=== PATIENT | male | born 1940 | race Caucasian/White ===

== ENCOUNTER → 2019-03-29 09:11 | Outpatient (BNVA) | payer MEDICARE, BC, OTHER, SELFPAY | PROVIDERS: PCP Family Medicine; Referring Provider Family Medicine; Visit Provider Psychiatry & Neurology Neurology | DX: I63.9 Cerebral infarction, unspecified (principal); I48.0 Paroxysmal atrial fibrillation; F32.9 Major depressive disorder, single episode, unspecified; G47.00 Insomnia, unspecified; Z79.01 Long term (current) use of anticoagulants; I10 Essential (primary) hypertension | CPT/HCPCS: 99205 ==

== ENCOUNTER 2019-04-05 06:59 | Outpatient (CLI) | payer MEDICARE, BC, OTHER, SELFPAY ==
--- NOTE | 2019-04-05 08:30 | MERGEMPI_ITS ---
*[facility]* *[facility]* [address] [place] [address] Myocardial Perfusion Imaging - SPECT Regadenoson Date of study: 04/05/2019 *PATIENT PRESENTATION* Height: 157.5cm (62in) Blood Pressure: Weight: 63.6kg (140lb) BSA: 1.68m^2 Referring physician: Jaun Vaca Ordering physician: Luca Pino Impressions: Normal myocardial perfusion and contraction after pharmacological stress. Summary: 1. Myocardial perfusion imaging: The right ventricle is dilated. No myocardial perfusion defects noted. 2. The calculated left ventricular ejection fraction after stress: 66%. LV global systolic function is normal. No left ventricular regional motion abnormality. 3. Stress ECG conclusions: The stress ECG is negative. 4. Baseline ECG: Sinus bradycardia with 1degrees AV block and right bundle branch block. Indication: I25.10. History: REASON FOR VISIT: PAROXSYMAL ATRIAL FIBRILLATION. PT'S DAUGHTER REPORTS SHE BELIEVES THE REASON FOR TESTING IS BECAUSE HIS DOCTOR WANTS HIM TO COME OFF OF HIS FLECAINIDE MEDICATION. 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 PT DENIES ANY ISSUES WITH CHEST PAIN. Risk factors: FORMER SMOKER. QUIT 30 YEARS PRIOR. Hypertension. Dyslipidemia. ALLERGIES: CODEINE MEDICATIONS: SENNOSIDES 17.2 MG DAILY. ROSUVASTATIN 20 MG DAILY. POLYETHYLENE GLYCOL 17 GM DAILY. OMEPRAZOLE 40 MG DAILY. MULTIVITAMIN 1 TAB DAILY. MIRTAZAPINE 7.5 MG DAILY AT HS. METOPROLOL TARTRATE 25 MG BID. FLUTICASONE FUROATE 100 MCG/DOSE I INH DAILY. FLECAINIDE 100 MG Q 12 HRS. CHOLECALCIFEROL 2,000 UNITS DAILY. ASCORBIC ACID 500 MG DAILY. APIXABAN 5 MG BID. AMLODIPINE 5 MG BID. ACETAMINOPHEN 650 MG Q 4HRS PRN. Imaging Technique: Protocol: Regadenoson. Acquisition: Gated SPECT; 1 day - rest/stress. The patient was imaged in the supine position. Attenuation correction used. Isotope administration: - Rest. Tc[99m]-sestamibi. Dose: 10.5mCi. Injection time: 08:20 AM. Injection to stress time: 00:45. - Stress. Tc[99m]-sestamibi. Dose: 32mCi. Injection time: 10:10 AM. 1-2 min before end of exercise Baseline ECST DEGREE AVB. RBBB. HR 57 BPM. Sinus bradycardia with 1degrees AV block and right bundle branch block. Stress protocol: +--------+--+ + + !Stage !HR!BP (mmHg) !Comments ! +--------+--+ + + !Baseline!57!140/60 (87)! ! +--------+--+ + + !1 min !73!150/50 (83)!Inject Regadenoson.! +--------+--+ + + !3 min !74!146/64 (91)! ! +--------+--+ + + !5 min !72!136/60 (85)! ! +--------+--+ + + !7 min !71!130/60 (83)! ! +--------+--+ + + * Stress results: The rate-pressure product for the peak heart rate and blood pressure was 44982rl Hg/min. Stress ECG: STRESS TEST ENDED IN 7 MINUTES & 49 SECONDS NORMAL HEART RATE AND BLOOD PRESSURE RESPONSE TO LEXISCAN INJECTION OCCASIONAL PVC. NO ANGINA RBBB. NO SIGNIFICANT ST SEGMENT CHANGES. The stress ECG is negative. Myocardial perfusion: Imaging information: gated. The image quality was good. Left ventricular size is normal. The right ventricle is dilated. No myocardial perfusion defects noted. Ventricular Function (Wall Motion): The calculated left ventricular ejection fraction after stress: 66%. LV global systolic function is normal. No left ventricular regional motion abnormality. Study data: Jaun Vaca MD supervised and was readily available during the procedure. This study was interpreted by [facility]. Study status: Routine. Consent: The risks, benefits, and alternatives to the procedure were explained to the patient and informed consent was obtained. Procedure: Initial setup. A baseline ECG was recorded. Surface ECG leads and manual cuff blood pressure measurements were monitored. Heart sounds: Normal. Lung sounds: Normal. Regadenoson stress test. Stress testing was performed, with regadenoson by intravenous bolus, for a total dose of 0.4mgover 10.00sec, followed by a 5ml saline flush. The infusion was terminated due to per protocol. The patient was unable to exercise due to deconditioning and or frailty. Study completion: All catheters inserted during the procedure were removed. The patient tolerated the procedure well and was discharged from the lab. Discharge: The patient left the laboratory in stable condition. Birthdate: Patient birthdate: 1940. Sex: Gender: male. Study date: Study date: 04/05/2019. Study time: 00:01 AM. Signature Documentation: - The imaging portion of this study was interpreted by Nuclear Alternative Dispute Resolution Mediator Jaun Vaca MD. - The imaging portion of this study was interpreted by Nuclear Radiologist Ash Hutton MD. - The Stress ECG portion of this study was interpreted by Jaun Vaca MD. Electronically signed by Jaun Vaca 04/05/2019 14:57
[2019-04-05] MEDS: Regadenoson 0.4 MG/5 ML SYR IVP (09:54)
== END 2019-04-05 07:19 ==
PROVIDERS: PCP Family Medicine; Visit Provider Internal Medicine Cardiovascular Disease
DX: I48.0 Paroxysmal atrial fibrillation (principal); I25.10 Atherosclerotic heart disease of native coronary artery without angina pectoris; I10 Essential (primary) hypertension; E78.5 Hyperlipidemia, unspecified; I63.9 Cerebral infarction, unspecified; Z87.891 Personal history of nicotine dependence
CPT/HCPCS: 78452; 93016; 93018; 93017; J2785

== ENCOUNTER 2019-06-21 09:52 | Outpatient (CLI) | payer MEDICARE, BC, OTHER, SELFPAY ==
--- NOTE | 2019-06-21 09:45 | DI.RAD_ITS ---
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 There is severe deformity of the tibial plateaus and femoral condyles with a bone on bone appearance. 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
== END 2019-06-21 10:12 ==
PROVIDERS: PCP Family Medicine; Referring Provider Family Medicine; Visit Provider Student in an Organized Health Care Education/Training Program
DX: M25.561 Pain in right knee (principal); M17.31 Unilateral post-traumatic osteoarthritis, right knee
CPT/HCPCS: 20610; 73562; 99203; J1040

== ENCOUNTER 2019-07-03 15:22 | Outpatient (CLI) | payer MEDICARE, BC, OTHER, SELFPAY ==
--- NOTE | 2019-07-03 15:30 | DI.RAD_ITS ---
SYMPTOM/DIAGNOSIS: FEVER I 10, HYPERTENSION R50.9 FEVER PA AND LATERAL CHEST: No prior comparison exams. The heart size is within normal limits. The lungs are suboptimally inflated. There is minimal blunting of the posterior costophrenic angles. There are mildly increased interstitial markings which could indicate mild pulmonary edema. There is some vascular prominence. No focal infiltrate is seen. There is no evidence of pneumothorax or thoracic compression fracture. IMPRESSION: Question of mild pulmonary edema.
[2019-07-03 15:52] LABS: HCT 33.4 % (40.0-50.0); HGB 10.6 g/dL (13.5-17.5); Mean Corp. HGB Concentration 31.7 g/dL (32.0-36.0); Mean Corpuscular Hemoglobin 27.6 pg (27.0-33.0); Mean Platelet Volume 10.1 fL (8.0-11.0); Platelet Count 193 x1000/uL (130-400); RBC 3.84 m/cumm (4.50-6.00); RBC Distribution Width 13.8 % (11.8-14.1); White Blood Cell Count 7.97 k/cumm (4.4-10.8)
[2019-07-03 16:50] LABS: ESR 51 mm/hr (1-20)
[2019-07-03 16:52] LABS: ALT 75 U/L (16-63); AST 32 U/L (15-37); Albumin 3.3 g/dL (3.4-5.0); Alkaline Phosphatase 126 U/L (46-116); Anion Gap 10.7 mmol/L (3-11); BUN 19 mg/dL (7-18); Bilirubin, Total 0.7 mg/dL (0.2-1.0); CO2 26.3 mmol/L (21.0-32.0); CREATININE 0.74 mg/dL (0.70-1.30); Calcium 8.6 mg/dL (8.5-10.1); Chloride 105 mmol/L (98-107); Glucose 84 mg/dL (70-100); Potassium 4.3 mmol/L (3.5-5.1); Sodium 142 mmol/L (136-145)
== END 2019-07-03 15:42 ==
PROVIDERS: PCP Family Medicine; Visit Provider Nurse Practitioner
DX: R50.9 Fever, unspecified (principal); J98.4 Other disorders of lung; I10 Essential (primary) hypertension
CPT/HCPCS: 36415; 80053; 85027; 85652; 71046

== ENCOUNTER 2019-07-03 15:48 | Outpatient (REF) | payer MEDICARE, OTHER, SELFPAY | END 2019-07-03 16:08 | LOC: LBN 15:48 | PROVIDERS: PCP Family Medicine; Visit Provider Nurse Practitioner | DX: R50.9 Fever, unspecified (principal) | CPT/HCPCS: 87086 ==

== ENCOUNTER → 2019-08-07 10:03 | Outpatient (BNVA) | payer MEDICARE, BC, OTHER, SELFPAY | PROVIDERS: PCP Family Medicine; Referring Provider Family Medicine; Visit Provider Student in an Organized Health Care Education/Training Program | DX: M17.31 Unilateral post-traumatic osteoarthritis, right knee; M25.561 Pain in right knee; Z98.890 Other specified postprocedural states; I10 Essential (primary) hypertension | CPT/HCPCS: 99212; 99213 ==

== ENCOUNTER → 2021-06-12 11:00 | Outpatient (BNVA) | payer MEDICARE, OTHER, SELFPAY | PROVIDERS: PCP Family Medicine; Referring Provider Family Medicine; Visit Provider Internal Medicine Cardiovascular Disease | DX: I48.0 Paroxysmal atrial fibrillation (principal); I34.0 Nonrheumatic mitral (valve) insufficiency; Z79.899 Other long term (current) drug therapy | CPT/HCPCS: 93005; 99204; 99214 ==

== ENCOUNTER 2021-12-03 01:08 | Outpatient (CLI) | payer MEDICARE, OTHER, SELFPAY ==
[2021-12-03 10:50] VITALS: PULSE 79; RESP 18; TEMP 36.9; O2SAT 97
[2021-12-03 12:18] VITALS: BP 121/59; PULSE 85; RESP 20; TEMP 36.8; O2SAT 96
== END 2021-12-03 01:09 | disposition home or self-care (01) ==
PROVIDERS: PCP Family Medicine; Visit Provider Family Medicine
DX: U07.1 COVID-19 (principal)
CPT/HCPCS: 96365; Q0047

== ENCOUNTER 2022-05-01 02:03 | Observation (INO) | payer MEDICARE, BC, OTHER, SELFPAY ==
[2022-05-01] VITALS (96 sets, daily range): BP systolic 95–160; BP diastolic 56–92; PULSE 57–79; RESP 16–19; TEMP 35.6–37; O2SAT 93–100
--- NOTE | 2022-05-01 02:00 | RT.EKG_ITS ---
APPROVED REPORT Exam: Resting ECG Reason for Exam: shortness of breath Patient Location: E HR:73 bpm ECG Measurements Heart Rate 73 AXIS [place] [id number] P [id number] QRSd 172 QRS 103 QT 484 T 6 QTc 535 Conclusion Atrial fibrillation...? atrial activity Right bundle branch block...QRSd>120, terminal axis(90,270) Consider anteroseptal infarct...Q >30mS, dimin R, V1-V2
--- OUTSIDE RECORDS SUMMARY | 2022-05-01 02:10 | XMS_ITS | Clinical Summary ---
:1940 Author Organization [facility] [place] [address] Care Team Providers Name Role Phone Douglas Presley Ale FORD Primary Care Provider Allergies Active Allergy Reactions Severity Noted Date Comments Codeine Other (See Comments) 03/20/2019 Stomach swelling Medications Medication Sig Dispensed Refills Start Date End Date Status amLODIPine (NORVASC) 5 TAKE 1 TABLET BY 0 03/16/2019 Active mg Tablet MOUTH TWICE DAILY zolpidem (AMBIEN) 5 mg take 1 tablet by 0 02/22/2019 Active Tablet mouth at bedtime if needed for sleep ELIQUIS 5 mg Tablet Take 5 mg by 0 03/06/2019 Active mouth 2 times daily. flecainide (TAMBOCOR) take 1 tablet by 0 02/23/2019 Active 100 mg Tablet mouth every 12 hours omeprazole (PRILOSEC) Take 20 mg by 0 Active 20 mg Capsule, Delayed mouth daily. Release(E.C.) multivit with Take 1 tablet by 0 Active minerals/lutein mouth daily. (MULTI-JASPAL 50 AND OVER ORAL) ascorbic acid (VITAMIN Take 500 mg by 0 Active C) 500 mg Tablet mouth daily. senna (SENOKOT) 8.6 mg Take 1 tablet by 0 Active Tablet mouth nightly. METOPROLOL TARTRATE Take 25 Devices 0 Active ORAL by mouth daily. cholecalciferol, Take 1,000 Units 0 Active Vitamin D3, 1,000 unit by mouth daily. Capsule fluticasone Inhale 1 puff 0 Acti ve furoate-vilanterol into the lungs (BREO ELLIPTA) 100-25 daily. mcg/dose Disk with Device polyethylene glycol Take 17 g by 0 Active (MIRALAX) 17 gram mouth daily. Powder in Packet rosuvastatin (CRESTOR) Take 1 tablet by 90 tablet 3 03/20/2019 Active 20 mg Tablet mouth daily. Active Problems No known active problems Social History Tobacco Use Types Packs/Day Years Used Date Former Smoker Cigarettes Quit: 03/20/20 16 Smokeless Tobacco: Never Used Sex Assigned at Date Recorded Not on file Last Filed Vital Signs Vital Sign Reading Time Taken Comments Blood Pressure 129/49 03/20/2019 8:28 AM EDT Pulse 56 03/20/2019 8:28 AM EDT Temperature - - Respiratory Rate - - Oxygen Saturation 99% 03/20/2019 8:28 AM EDT Inhaled Oxygen Concentration - - Weight 64 kg (141 lb) 03/20/2019 8:28 AM EDT Height 154.9 cm (5' 0.98) 03/20/2019 8:28 AM EDT Body Mass Index 26.66 03/20/2019 8:28 AM EDT Plan of Treatment Health Maintenance Due Date Last Done Comments Covid-19 Vaccine (#1) 1945 Tdap adult 1959 Tetanus vaccine 1959 Zoster vaccine (1 of 2) 1990 Advance Directive 1995 Pneumoccocal Vaccine: 65+ (1 - PCV) 2005 Influenza (Flu) vaccine (1 of 1 - Influenza standard 07/09/2021 series) Insurance Payer Benefit Plan / Subscriber ID Effective Dates Phone Addre ss Type Group [facility] [employer] [id number] 2018-Presen [address] [place], [place] [address] MEDICARE MEDICARE PART [id number] 2019-Prese [phone] [place] [address] Care Teams Driver Material Handler Relationship Specialty Start Date End Date Douglas Presley DO PCP - General Family Medicine 02/22/[address] [place] [address]
--- OUTSIDE RECORDS SUMMARY | 2022-05-01 02:10 | XMS_ITS | Encounter Summary ---
:1940 Author Organization [facility] [place] [address] Care Team Providers Name Role Phone Douglas Presley DO Primary Care Provider Reason for Visit Consultation (Routine) - Closed Specialty Diagnoses / Procedures Referred By Contact Refer red To Contact Cardiology Diagnoses chronic A fib, new stroke was not on anticoagulation Douglas Presley DO [facility] Card[facility] [address]a [address] [place] [place] [id number] [place] [id number] Referral ID Status Reason Start Date Expiration Date Visits V isits Requested Authorized [id number] Closed Consult, 02/22/2019 02/22/2020 1 1 [facility] Encounter Details Date Type Department Care Team Description 03/20/2019 Office Visit Cardiology at [facility] Luca Merchant MD [facility] [place] [address] PAF (paroxysmal atrial [facility] Jr White MD [facility] [place] [address] fibrillation) [place] [address] Social History Tobacco Use Types Packs/Day Years Used Date Former Smoker Cigarettes Quit: 03/20/20 16 Smokeless Tobacco: Never Used Sex Assigned at Date Recorded Not on file documented as of this encounter Last Filed Vital Signs Vital Sign Reading [...] Mass Index 26.66 03/20/2019 8:28 AM EDT documented in this encounter Progress Notes Jr White - 03/20/2019 8:00 AM EDT Images from the original note were not included. CARDIOVASCULAR MEDICINE [address] [place] [address] Subjective Identification Red Cat is a 78 y.o. patient of Douglas Presley DO Cardiovascular Problem List: HTN PAF ([id number]): 5 2010: Initially dx'ed, refused OAC, started on flecainide 01/2019: presented with CVA Opted to take apixaban following this CVA: 10/2018: First CVA, started on eliquis at this time 01/2019: - p/w cp and gait changes. MRI brain showed acute L frontal-parietal lobe infarct and L occipital lobe infarct -discharged to rehab 3 weeks later -persistent deficits as of 03/20/19: aphasia and r sided weakness Present Illness 78 y/o man with hx of htn, hld, PAF and CVA who presents for cardiology follow up. History is limited by aphasia, however his family tells me that he was first diagnosed with atrial fibrillation back in [place] roughly in 2010 in the setting of increasing dyspnea and palpitations. At this time he underwent a cardiac catheterization which was reportedly normal and started on flecainide for rhythm control. At this time, he refused anticoagulation. He had no further cardiac issues up until October 2018, at which time he developed his first CVA. He was admitted to [facility] [place] (presumably a thrombectomy). The rest of his stroke work-up from that time is not available to me. At this time he was started on Eliquis for anticoagulation. He then underwent rehabilitation, however was readmitted to [facility] after developing right leg weakness, dysphasia and dyspnea. MRI of his brain showed multiple subsequent infarcts and he was managed for repeat stroke. He was admitted for 3 weeks (including his rehab stay) and subsequently he and his have moved up to [place] to live with her daughter near [facility]. Following these episodes, he is doing fairly well all things considered. His main complaints still include mild dysphasia, aphasia, and right-sided weakness and gait instability. He denies any dyspnea with exertion (although he is only doing light exercises with PT and OT) syncope, palpitations, angina, PND, orthopnea. He does note mild bilateral lower extremity edema with right worse than left thereis been present since his stroke. He and his note that in the past, when he did have episodes of atrial fibrillation, these wouldbe associated with dyspnea and sense of fatigue rather than palpitations. They are not sure that these episodes always correlated with A. fib and they are not sure why he was started on flecainide backin 2010, however they note that he has tolerated this drug quite well and he denies any significant recent episodes of palpitations. His other major complaints include constipation and insomnia. Review of Systems As per HPI, otherwise negative Past Medical History PAF HTN HLD Social History Social History Social History Narrative Minimal alcohol, former smoker, no drug use. Lives with and daughter in [place], [place]. Speaks Greenlandic and has difficulty with Irish since his last stroke. Family History No family history of early CAD Medications Current Outpatient Medications: ??? amLODIPine (NORVASC) 5 mg Tablet, TAKE 1 TABLET BY MOUTH TWICE DAILY, Disp: , Rfl: 0 ??? zolpidem (AMBIEN) 5 mg Tablet, take 1 tablet by mouth at bedtime if needed for sleep, Disp: , Rfl: 0 ??? ELIQUIS 5 mg Tablet, Take 5 mg by mouth 2 times daily., Disp: , Rfl: 0 ??? flecainide (TAMBOCOR) 100 mg Tablet, take 1 tablet by mouth every 12 hours, Disp: , Rfl: 0 ??? omeprazole (PRILOSEC) 20 mg Capsule, Delayed Release(E.C.), Take 20 mg by mouth daily., Disp: , Rfl: ??? multivit with minerals/lutein (MULTI-JASPAL 50 AND OVER ORAL), Take 1 tablet by mouth daily., Disp: , Rfl: ??? ascorbic acid (VITAMIN C) 500 mg Tablet, Take 500 mg by mouth daily., Disp: , Rfl: ??? senna (SENOKOT) 8.6 mg Tablet, Take 1 tablet by mouth nightly., Disp: , Rfl: ??? METOPROLOL TARTRATE ORAL, Take 25 Devices by mouth daily., Disp: , Rfl: ??? cholecalciferol, Vitamin D3, 1,000 unit Capsule, Take 1,000 Units by mouth daily., Disp: , Rfl: ??? fluticasone furoate-vilanterol (BREO ELLIPTA) 100-25 mcg/dose Disk with Device, Inhale 1 puff into the lungs daily., Disp: , Rfl: ??? polyethylene glycol (MIRALAX) 17 gram Powder in Packet, Take 17 g by mouth daily., Disp: , Rfl: ??? rosuvastatin (CRESTOR) 20 mg Tablet, Take 1 tablet by mouth daily., Disp: 90 tablet, Rfl: 3 Allergies Allergies Allergen Reactions ??? Codeine Other (See Comments) Stomach swelling Objective Physical Exam BP 129/49 Pulse 56 Ht 154.9 cm (5' 0.98) Wt 64 kg (141 lb) SpO2 99% BMI 26.66 kg/m?? , Body mass index is 26.66 kg/m??. General: fatigued, falls asleep during visit, no acute distress ENT: clear oropharynx, moist mucous membranes Neck: midline trachea, supple neck, jugular vein 7 cm (visible and not distended), Cardiac: S1S2 regularly regular, no murmurs/rubs/gallops, no RV heave, PMI nondisplaced Lungs: Clear to auscultation bilaterally, no wheezes/rales/rhonchi Abdomen: soft, NT/ND, Ext: no clubbing or cyanosis, 1+ b/l edema Vascular: No carotid bruits.Radial pulses 2+, Neurologic: deferred Skin: no rashes Back: no kyphosis or scoliosis Labs No new labs at this time Studies Echo 01/2019: nml biventricular systolic function, no valvular disease EKG 01/2019: NSR with RBBB and FAVB EKG today: NSR with FAVB and RBBB, QT interval was 488 ms corrected down to 418 when accounting for the right bundle branch block and heart rate. Assessment 78-year-old man with paroxysmal atrial fibrillation complicated by multiple cerebrovascular accidents who presents today for initial cardiology follow-up after his recent strokes. 1. Paroxysmal atrial fibrillation He is currently in normal sinus rhythm and tolerating flecainide well at this time. We discussed therisks of flecainide, however we noted that he has no known coronary disease and appears to have minimal evidence of QT prolongation while on this medication. His prior echo from [place] shows a structurally normal heart with no evidence of systolic dysfunction. We discussed that while its unusual to remain on this medication at his age, there is no significant contraindications to it. It appears that he did become symptomatic while in atrial fibrillation, and flecainide certainly would reduce his burden. We noted that there is no reduction in stroke risk from flecainide. We discussed several options, the first being to continue flecainide with an ischemia evaluation (pharmacologic nuclear stress testing) versus discontinuing the drug and evaluating whether or not he develops symptoms from going into atrial fibrillation. As he is tolerating the medication well, his family and I agreed that it would be reasonable just to continue this medication and stress testing at this time. He will be following up with neurology at [facility] to discuss his recent strokes and to determine whether or not any further work-up is necessary. Although he had his st most recent stroke while taking Eliquis, we agree that it is still reasonable to continue on this medication at this time. Plan ?? Pharmacologic nuclear stress test Jr White MD 03/20/2019 10:08 AM cc: ?? Douglas Presley, DO [address] [facility] [address] [place] Luca Merchant MD - 03/20/2019 8:00 AM EDT Attending Note I have independently interviewed and and examined the patient following the fellow's evaluation. Theassessment and plan were formulated in discussion with me. Tolerating flecainide well. QTc is fine. I think it is a reasonable choice as long as we do periodic stress testing every 2 years. Luca Merchant MD, MS, FACC documented in this encounter Miscellaneous Notes Addendum Note - Luca Merchant MD - 03/20/2019 8:00 AM EDT Addended by: LUCA MERCHANT on: 03/20/2019 11:12 AM Modules accepted: Level of Service documented in this encounter Plan of Treatment Not on filedocumented as of this encounter Procedures Procedure Name Priority Date/Time Associated Diagnosis Comme nts EKG 12-LEAD Routine 03/20/2019 9:01 AM PAF (paroxysmal Result s for this EDT atrial fibrillation) procedu re are in the results section . documented in this encounter Results EKG 12 Lead (03/20/2019 9:01 AM EDT) Component Value Ref Range Test Analysis Performed Pathologis t Method Time At Signature Ventricular rate 56 BPM MUSE SYSTEM Atrial Rate 56 BPM MUSE SYSTEM P-R Interval 272 ms MUSE SYSTEM QRS Duration 156 ms MUSE SYSTEM Q-T Interval 488 ms MUSE SYSTEM QTC Calculated 470 ms MUSE SYSTEM (Bezet) Calculated P [place] 73 degrees MUSE SYSTEM Calculated R [place] 87 degrees MUSE SYSTEM Calculated T [place] 4 degrees MUSE SYSTEM INTERPRETATION Sinus bradycardia with 1st degree A-V block MUSE SYSTEM Right bundle branch block Abnormal ECG No previous ECGs available Confirmed by MD PAKO, JOSE ([id number]) on 03/20/2019 7:46:45 PM Specimen Anatomical Collection Method Collection Time Receive d Time (Source) Location / / Volume Laterality 03/20/2019 9:01 AM 05/13/201 9 7:46 EDT PM EDT Luca Merchant MD ECG ORDERABLES Performing Organization Address City/State/ZIP Code Phon e Number MUSE SYSTEM documented in this encounter Visit Diagnoses Diagnosis PAF (paroxysmal atrial fibrillation) Atrial fibrillation documented in this encounter Care Teams Marine Cargo Specialist Relationship Specialty Start Date End Date Douglas Presley DO PCP - General Family Medicine 02/22/[address] [place] [address] documented as of this encounter
--- NOTE | 2022-05-01 02:15 | DI.CT_ITS ---
Exam(s) CT THORAX ABD/PEL CTA EXAM: CT THORAX ABD/PEL CTA CLINICAL HISTORY: chest and abodmen pain, ?dissection. TECHNIQUE: Imaging Protocol: Axial CT angiography was performed with multi-slice acquisition and m ulti-planar and/or 3D reconstructions. CONTRAST MATERIAL: Intravenous: Omnipaque 350ml contrast volume:100 mL Oral: No COMPARISON: No exams were available for comparison FINDINGS: The examination is limited due to patient motion artifact. CHEST: Tracheobronchial tree: Patent where visualized. Pulmonary parenchyma: No consolidation or dominant measurable mass. No architectural distortion. Depe ndent atelectasis. Pulmonary Arteries: No evidence of filling defect to suggest pulmonary emboli. Mediastinum and Kely: No dominant adenopathy or fluid collection. Visualized thyroid: Unremarkable. Pleura: No effusion or pneumothorax. Heart: Mild cardiomegaly. Coronary artery calcifications are present. No pericardial effusion. Aorta: Thoracic aorta non-dilated. No evidence of dissection. Atherosclerosis is present. Soft Tissues: Unremarkable. Bones: Within normal limits for the patient's age. ABDOMEN AND PELVIS: Abdomen: Celiac axis/mesenteric arteries: No evidence of occlusion or significant stenosis. Atherosclerosis i s present. Renal Arteries: No evidence of occlusion or significant stenosis. There is a single renal artery per fusing each kidney. Atherosclerosis is present. Aorta: No evidence of occlusion or significant stenosis. No aneurysm or dissection. Atherosclerosi s is present. Pelvis: Iliac Arteries: No evidence of occlusion or significant stenosis. Atherosclerosis is present. Common Femoral Arteries: No evidence of occlusion or significant stenosis. Atherosclerosis is prese nt. ABDOMEN: Liver: Normal density. No measurable mass. Gallbladder and Biliary Tract: No radiodense calculus or dilation. Pancreas: Normal density, no abnormal calcifications or inflammatory process. Spleen: Normal. Adrenals: No masses seen. Kidneys: Normal size, contour and axis. No radiodense stones or obstructive uropathy. Bilateral renal cysts. Bowel: No obstruction or bowel wall thickening. No evidence of appendicitis. Peritoneal Cavity: No ascites, collection or mesenteric inflammatory response. No free air. Lymph Nodes: Within normal limits. Bones: Within normal limits for the patient's age. Soft Tissues: There are bilateral fat containing inguinal hernia. PELVIS: Bladder: Incompletely distended but grossly unremarkable. Reproductive Organs: Mildly enlarged. Lymph Nodes: Within normal limits. Bones: Within normal limits. IMPRESSION: No acute abnormality. RADIATION DOSE DELIVERED: 997.53mGy.cm Total DLP DATA REPOSITORY: All CT scans at this facility are submitted to the National Radiology Data Registry (NRDR) Dose Index Registry (DIR) with the [employer] (ACR). RADIATION OPTIMIZATION: All CT scans at this facility use at least one of these dose optimization te chniques: automated exposure control; mA and/or kV adjustment per patient size (includes targeted exa ms where dose is matched to clinical indication); or iterative reconstruction.
--- NOTE | 2022-05-01 02:22 | ED.GENADUL_ITS ---
Discharge Plan Disposition Patient Disposition: [facility] INPATIENT Condition: Stable Discharge Details Chief Complaint: GenMedical Clinical Impression: Chest pain, Abdominal pain Primary Care Provider: Douglas Presley ED Provider: Maxi Asencio Home Meds and New Rx's Prescriptions: No Action (DME) Shower Chair Qty: 1 0RF Rx Instructions: Red would benefit from a shower chair to assist in hygiene given his progress with stroke. Senokot Extra Strength 17.2 mg tablet 17.2 mg PO DAILY acetaminophen 325 mg tablet 650 mg PO Q4H PRN metoprolol tartrate 25 mg tablet 25 mg PO BID Qty: 180 3RF apixaban 5 mg tablet 5 mg PO BID Qty: 180 3RF rosuvastatin 10 mg tablet 10 mg PO DAILY Qty: 90 3RF Rx Instructions: Covering for TM -- new dose per MD provider flecainide 100 mg tablet 100 mg PO Q12H Qty: 180 3RF amlodipine 5 mg tablet 5 mg PO BID Qty: 180 3RF Medical Decision Making 81 yo male with hx of gerd, afib, htn, hld, who comes in with chest pain and dyspnea. He is accompanied by his daughter and he had been well during the day then woke up her up after going to sleep stating his chest hurt and he had trouble breathing. He denies any fevers, cough. He states his upper back and also his abdomen hurts. He is in no distress laying in the bed, stable vital signs. He has clear lungs, soft abdomen but is tender in all quadrants, no guading. Given the chest pain radiating to his back and abdomen concern for dis section, will obtain cta of the chest/abd/pelvis and also cbc, troponin, ecg, lipase and reassess. Will hold on aspirin until dissection ruled out with cta. ' labs and cta negative, he was given a dose of lasix given his probnp was over 1000. He is stable states he has some anterior mild chest tightness. Given his age and risk factors will admit for further observation and possibly a stress test Differential Diagnosis Differential Diagnosis: dissection, nstemi, pancreatitis Medical Records Medical records reviewed: Yes I reviewed the patient's medical records. Imaging Data Radiologic Study: Attestation: I personally reviewed and interpreted this imaging study as follows: Imaging: CT Scan Radiologist's impression: no acute findings Lab Data Lab results reviewed: Yes I reviewed the patient's lab results. ECG Data Attestation: I personally reviewed and interpreted this ECG (s) as follows: Prior ECG tracings: available for review Interpretation: afib, rate of 73, rbbb, no acute changes from prior ekg HPI General Date/Time Provider Initiated Documentation: 05/01/22 02:09 . Limitations to Documentation: no limitations . Information obtained by: patient and family . History of Present Illness 81 year old M presents to the emergency department with the chief complaint of chest pain, described as moderate, and is localized to the chest. Patient reports radiation to back and abdomen. Patient started experiencing this hour(s) (1) and it has been constant. No relieving factors improve symptom(s), No exacerbating factors reported . Patient notes shortness of breath. Patient did receive the following treatments prior to arrival, none Related Data Home Medications Medication Instructions Recorded Confirmed acetaminophen 325 mg tablet 650 mg PO Q4H PRN 02/16/19 05/01/22 Shower Chair #1 ea 06/21/19 06/12/21 sennosides 17.2 mg tablet (Senokot 17.2 mg PO DAILY 05/22/21 05/01/22 Extra Strength) metoprolol tartrate 25 mg tablet 25 mg PO BID #180 tab-caps 06/23/21 05/01/22 apixaban 5 mg tablet 5 mg PO BID #180 tabs 09/09/21 05/01/22 rosuvastatin 10 mg tablet 10 mg PO DAILY #90 tab-caps 09/09/21 05/01/22 amlodipine 5 mg tablet 5 mg PO BID #180 tabs 03/03/22 05/01/22 flecainide 100 mg tablet 100 mg PO Q12H #180 tabs 03/03/22 05/01/22 Previous Rx's Medication Instructions Recorded Shower Chair #1 ea 06/21/19 metoprolol tartrate 25 mg tablet 25 mg PO BID #180 tab-caps 06/23/21 apixaban 5 mg tablet 5 mg PO BID #180 tabs 09/09/21 rosuvastatin 10 mg tablet 10 mg PO DAILY #90 tab-caps 09/09/21 amlodipine 5 mg tablet 5 mg PO BID #180 tabs 03/03/22 flecainide 100 mg tablet 100 mg PO Q12H #180 tabs 03/03/22 Allergies Allergy/AdvReac Type Severity Reaction Status Date / Time codeine AdvReac Intermediate bloated Verified 05/01/22 02:13 General Stated Complaint: GenMedical NIYA: 2 Review of Systems All systems reviewed & are unremarkable except as noted in HPI and below Constitutional Constitutional: Denies chills, Denies fever(s) and Denies weakness Respiratory Respiratory: Denies cough Gastrointestinal Gastrointestinal: Denies vomiting Genitourinary Genitourinary: Denies dysuria Musculoskeletal Musculoskeletal: Denies joint swelling Integumentary/Breasts Skin/Breast: Denies rash Neurologic Neurologic: Denies weakness [facility] All Active Problems (Updated 05/01/22 @ 05:13 by Maxi Asencio MD) Chest pain (Acute) Abdominal pain (Acute) SARS-CoV-2 positive (Acute ~12/01/21) High blood sugar (Acute) Fever (Acute) Insomnia (Chronic) Depression (Chronic) Osteoarthritis of knee (Acute) Pancreatitis (Chronic) GERD (gastroesophageal reflux disease) (Chronic) Hyperlipidemia (Acute) Hypertension (Chronic) Atrial fibrillation (Chronic) Left-sided cerebrovascular accident (CVA) (Acute) Active Problem List High blood sugar (Acute) Fever (Acute) Insomnia (Chronic) Depression (Chronic) Osteoarthritis of knee (Acute) Pancreatitis (Chronic) GERD (gastroesophageal reflux disease) (Chronic) Hyperlipidemia (Acute) Hypertension (Chronic) Atrial fibrillation (Chronic) Left-sided cerebrovascular accident (CVA) (Acute) Medical History History of COVID-19 12/2020, received MAB Surgical History S/P hernia repair S/P knee surgery S/P TURP Social History (Updated 09/25/21 @ 09:00 by Opal Ureña LPN) Smoking/Tobacco Use Status: Former Tobacco Use Smoking risk assessment performed?: Yes Alcohol Intake: former Drug use: Never Substance use type: does not use Caregiver/Support person: Yes Household members: children Housing: house Number of Children: 4 Communication Needs: Language Barriers Do you need help understanding health information?: Often current occupation: retired Current gender identity: male What is your relationship status?: Panel score (0-1 are the most socially isolated patients): 0 What type of physical activity do you participate in: none Seatbelt use: always Drive intox or ride w/intox nascar driver: No Working smoke detector in home: Yes Carbon monox detector in home: Yes Do you feel safe at home: Yes Exam Const General: no acute distress Orientation: alert HENMT Head: normal to inspection Ears: external ears normal General nose exam: external nose normal Mouth: moist mucous membranes Eyes General: appearance normal, both eyes and all related structures Neck Neck: normal visual inspection Resp Effort & Inspection: normal respiratory effort and able to speak in complete sentences Cardio Rate: regular rate GI Palpation: soft and tender Skin General skin exam: no rashes or lesions noted Neuro General: patient alert and patient oriented x3 Extrem General: normal to inspection Psych Mental Status: mental status grossly normal Course Vital Signs Vital signs: Vital Signs Temperature 37.0 C 05/01/22 02:08 Pulse 68 05/01/22 02:08 Respiratory Rate 19 05/01/22 02:08 Blood Pressure 160/92 H 05/01/22 02:08 Pulse Oximetry 97 05/01/22 02:08 Temperature 37.0 C 05/01/22 02:08 Temperature Source Tympanic 05/01/22 02:08 Pulse 68 05/01/22 02:08 Respiratory Rate 19 05/01/22 02:10 Respiratory Effort Short of Breath 05/01/22 02:10 Respiratory Depth Normal 05/01/22 02:10 Respiratory Pattern Normal 05/01/22 02:10 Blood Pressure 160/92 H 05/01/22 02:08 Blood Pressure Position Sitting 05/01/22 02:08 Pulse Oximetry 97 05/01/22 02:08 Oxygen Delivery Method Room Air 05/01/22 02:08 Oxygen Flow Rate 0 05/01/22 02:08 Pain Level 5 05/01/22 02:08
[2022-05-01 02:29] LABS: BE (Venous) 9 mmol/L (-2-3); HCO3 (Venous) 34 mmol/L (23-28); O2 Sat (Venous) 44 %; Source Nasal/Nares; TCO2 (Venous) 30 mmol/L (24-29); pCO2 (Venous) 54 mmHg (41-51); pH (Venous) 7.41 (7.31-7.41); pO2 (Venous) 27 mmHg
[2022-05-01 02:31] LABS: Abs Immature Grans 0.02 10^3/uL (0.0-0.06); Absolute Basophil Count 0.09 10^3/uL (0.0-0.2); Absolute Eosinophil Count 0.19 10^3/uL (0.0-0.7); Absolute Lymphocyte Count 2.58 10^3/uL (1.2-3.4); Absolute Monocyte Count 0.76 10^3/uL (0.1-0.8); Eosinophils % 2.1; HCT 48.3 % (40.0-50.0); HGB 15.3 g/dL (13.5-17.5); Immature Grans % 0.2; Lymphocytes % 28.9; MCH 28.2 pg (27.0-33.0); MCHC 31.7 % (32.0-36.0); MCV 89 fL (80-95); MPV 10.1 fL (8.0-11.0); Monocytes % 8.5; Neutrophils % 59.3; Platelet Count 204 10^3/uL (130-400); RBC 5.42 10^6/uL (4.36-5.78); RDW 13.5 % (11.8-14.1); WBC 8.94 10^3/uL (4.4-10.8)
[2022-05-01 02:44] LABS: Lipase 147 U/L (73-393)
[2022-05-01 02:46] LABS: INR 1.2 (0.9-1.1); Prothrombin Time 11.7 sec (9.3-11.0)
[2022-05-01] MEDS: fentaNYL 100 MCG/2 ML VIAL 50 MCG IVP (02:47)
[2022-05-01 02:53] LABS: ALT 41 U/L (16-63); AST 28 U/L (15-37); Albumin 4.1 g/dL (3.4-5.0); Alkaline Phosphatase 122 U/L (46-116); Anion Gap 5.8 mmol/L (3-11); BUN 21 mg/dL (7-18); Bilirubin, Total 0.5 mg/dL (0.2-1.0); CO2 32.2 mmol/L (21.0-32.0); CREATININE 1.1 mg/dL (0.70-1.30); Calcium 9.4 mg/dL (8.5-10.1); Chloride 98 mmol/L (98-107); Glucose 122 mg/dL (74-106); Magnesium 2.1 mg/dL (1.8-2.4); NT-proBNP 1256 pg/mL (<300); Potassium 3.4 mmol/L (3.5-5.1); Sodium 136 mmol/L (136-145); Total Protein 8.8 g/dL (6.4-8.2); Troponin I < 50 ng/L (<or=60)
[2022-05-01] MEDS: Furosemide 20 MG/2 ML VIAL IVP (03:08)
[2022-05-01 03:20] LABS: COVID-19 PCR Negative (Negative)
[2022-05-01] MEDS: Omnipaque 350 MG/ML 100 ML BTL IJ (03:47)
--- NOTE | 2022-05-01 04:29 | DI.VRAD_ITS ---
PROCEDURE INFORMATION: Exam: CTA Chest With Contrast CTA Abdomen and Pelvis With Contrast Exam date and time: 05/01/2022 3:36 AM Age: 81 years old Clinical indication: Other: Chest and abodmen pain, ? dissection; Abdominal pain TECHNIQUE: Imaging protocol: Computed tomographic angiography of the chest with contrast. Computed tomographic angiography of the abdomen and pelvis with contrast. 3D rendering (Not supervised by radiologist): MIP and/or 3D reconstructed images were created by the technologist. Radiation optimization: All CT scans at this facility use at least one of these dose optimization techniques: automated exposure control; mA and/or kV adjustment per patient size (includes targeted exams where dose is matched to clinical indication); or iterative reconstruction. Contrast material: OMNIPAQUE 350; Contrast volume: 100 ml; Contrast route: INTRAVENOUS (IV); COMPARISON: CR XR CHEST 2V PA LATERAL 07/03/2019 3:55 PM FINDINGS: VASCULATURE: Pulmonary arteries: No central or definite pulmonary embolus on study limited due to respiratory motion. Aorta: No aortic aneurysm. No aortic dissection. Celiac trunk and mesenteric arteries: No occlusion or significant stenosis. Renal arteries: No occlusion . Moderate stenosis proximal left renal artery. Right iliac arteries: No occlusion or significant stenosis. Left iliac arteries: No occlusion or significant stenosis. CHEST: Lungs: Unremarkable. No consolidation. No masses. Pleural spaces: Unremarkable. No pneumothorax. No pleural effusion. Heart: Unremarkable. No cardiomegaly. No pericardial effusion. ABDOMEN AND PELVIS: Liver: No mass. Gallbladder and bile ducts: Unremarkable. No calcified stones. No ductal dilation. Pancreas: Unremarkable. No mass. No ductal dilation. Spleen: Unremarkable. No splenomegaly. Adrenal glands: Unremarkable. No mass. Kidneys and ureters: Unremarkable. No solid mass. No hydronephrosis. Stomach and bowel: Unremarkable. No obstruction. No mucosal thickening. Appendix: No evidence of appendicitis. Intraperitoneal space: Unremarkable. No free air. No significant fluid collection. Urinary bladder: Unremarkable. No mass. Reproductive: Unremarkable as visualized. Lymph nodes: Unremarkable. No enlarged lymph nodes. Bones/joints: Unremarkable. No acute fracture. Soft tissues: Unremarkable. IMPRESSION: No acute findings. Dictated and Authenticated by: Maxi Varela MD. Ordering:SHIRA German MD
[2022-05-01] MEDS: Aspirin 81 MG CHEW 324 MG CH (05:02)
[2022-05-01 07:16] LABS: Troponin I < 50 ng/L (<or=60)
[2022-05-01] MEDS: Normal Saline Flush 10 ML SYR IVP ×3 (08:05→16:34)
--- NOTE | 2022-05-01 08:05 | W.PM.HP.N ---
Date of service: 05/01/22 Time of Service: 08:05 Assessment and Plan Assessment and plan (1) Chest pain: Start date: 05/01/22 Status: Acute Assessment and plan: This is an 81-year-old woman presenting with atypical chest pain with a history of chronic atrial fibrillation. His troponin was negative and these will be trended. We will continue on cardiac monitoring. His Eliquis will be continued for now with no evidence of gross bleeding though he does have some abdominal discomfort. He is status post stroke over the left cerebral hemisphere with some residual hemiparesis especially in the right upper extremity. Patient is a full code. (2) Abdominal pain: Start date: 05/01/22 Status: Acute Assessment and plan: Imaging thus far unrevealing with patient having guarding and apparent tenderness but not focalized with good bowel sounds in all quadrants. Monitor with patient to be fed pur?ed diet status post CVA. Surgical consultation if needed. (3) Atrial fibrillation: Status: Chronic Assessment and plan: CAF is rate controlled we will continue monitoring on current medical regimen. Continue Eliquis for now. (4) Left-sided cerebrovascular accident (CVA): Status: Chronic Assessment and plan: Stable by exam with patient to have pur?ed diet and watch for choking. PT/OT as needed. History of Present Illness History of Present Illness Chief Complaint: Chest pressure with abdominal pain Narrative: This is an 81-year-old male patient with a history of chronic atrial fibrillation on anticoagulation, GERD, hypertension and hyperlipidemia who presented to the ED with chest pain and shortness of breath. He was presented with his daughter who gave the history that the patient awakened after going to sleep the night of admission and stated that his chest was hurting and he had trouble breathing. He did not have any fever, cough. He had no nausea or vomiting. His abdomen is described as aching over his upper abdomen mostly. In the ED he was in no distress and appeared to be in no pain. He was soft but tender in all quadrants without guarding when examined. Since he had chest pain radiating into his back he was evaluated with CTA of the abdomen chest and pelvis and there were no dissecting aneurysms and no evidence of vascular disease or compromise of blood flow to the organs. Patient was comfortable at the time I examined him and he mainly speaks [place] with his daughter there to translate. He offers no further history and appears comfortable lying in bed. He was admitted for further evaluation of his symptoms with trending troponins and he was given 1 dose of Lasix in the ED. He was hypokalemic and was initiated with IV potassium but this was switched to oral supplement because of discomfort. Review of Systems Narrative: 13 point review of systems otherwise unrevealing or stable. PFSH All Active Problems (Updated 05/01/22 @ 23:40 by Jose Miguel Marino) Chronic right shoulder pain (Acute) Chest pain (Acute) Abdominal pain (Acute) SARS-CoV-2 positive (Acute ~12/01/21) High blood sugar (Acute) Fever (Acute) Insomnia (Chronic) Depression (Chronic) Osteoarthritis of knee (Acute) Pancreatitis (Chronic) GERD (gastroesophageal reflux disease) (Chronic) Hyperlipidemia (Acute) Hypertension (Chronic) Atrial fibrillation (Chronic) Left-sided cerebrovascular accident (CVA) (Chronic) Medical History History of COVID-19 12/2020, received MAB Surgical History S/P hernia repair S/P knee surgery S/P TURP Social History Smoking/Tobacco Use Status: Former Tobacco Use Smoking risk assessment performed?: Yes Alcohol Intake: former Drug use: Never Substance use type: does not use Caregiver/Support person: Yes Household members: children Housing: house Number of Children: 4 Communication Needs: Language Barriers Do you need help understanding health information?: Often current occupation: retired Current gender identity: male What is your relationship status?: Panel score (0-1 are the most socially isolated patients): 0 What type of physical activity do you participate in: none Seatbelt use: always Drive intox or ride w/intox otr flatbed driver: No Working smoke detector in home: Yes Carbon monox detector in home: Yes Do you feel safe at home: Yes Meds Allergies and Home Medications Allergies Allergy/AdvReac Type Severity Reaction Status Date / Time codeine AdvReac Intermediate bloated Verified 05/01/22 02:13 Home Medications Medication Instructions Recorded Confirmed Type acetaminophen 325 mg tablet 650 mg PO Q4H PRN 02/16/19 05/01/22 History Shower Chair #1 ea 06/21/19 06/12/21 Rx sennosides 17.2 mg tablet (Senokot 17.2 mg PO DAILY 05/22/21 05/01/22 History Extra Strength) metoprolol tartrate 25 mg tablet 25 mg PO BID #180 tab-caps 06/23/21 05/01/22 Rx apixaban 5 mg tablet 5 mg PO BID #180 tabs 09/09/21 05/01/22 Rx rosuvastatin 10 mg tablet 10 mg PO DAILY #90 tab-caps 09/09/21 05/01/22 Rx flecainide 100 mg tablet 100 mg PO Q12H #180 tabs 03/03/22 05/01/22 Rx bumetanide 1 mg tablet 1 mg PO BID 05/01/22 05/01/22 History Exam Narrative Exam Narrative: General: Patient appears appropriate for age, alert and oriented at least to person and place with interpretation by his daughter with the patient only speaking [place]. He is in moderate distress when examined over his abdomen otherwise appears comfortable. HEENT: Normocephalic, eyes with pupils equal and reactive light symmetrically, extraocular movement intact and sclera anicteric. Oropharynx with dry mucosa. Neck: Supple without JVD. Back: Stooped posture without CVA tenderness. Lungs: Bronchovesicular breath sounds diffusely with occasional crackle and rhonchi but no focalizing. No expiratory wheeze. Heart: Irregularly irregular rhythm with normal rate. No appreciable murmur or gallop. Abdomen: Slightly protuberant but soft to palpation with patient guarding during my exam especially over the right mid and upper abdomen but no rebound. No palpable hepatosplenomegaly. Genitalia/rectal: Exam deferred. Extremity: Without clubbing, cyanosis or grossly pitting edema. Fair capillary refill. Skin: Brown color, warm and dry. Neuro: Cranial nerves II through XII gross intact, no focalizing motor deficits. Psych: Patient appears to be in no distress, normal affect and mood but not able to speak [place] he is manifesting no abnormal thought processes according to daughter. Remote and recent memory appear to be grossly intact. Results Labs Result diagrams: 05/01/22 02:23 05/01/22 02:23 Labs: Laboratory Results - last 24 hr 05/01/22 05/01/22 05/01/22 02:23 02:23 02:23 WBC 8.94 RBC 5.42 Hgb 15.3 Hct 48.3 MCV 89 MCH 28.2 MCHC 31.7 L RDW 13.5 Plt Count 204 MPV 10.1 Immature Gran % 0.2 Neutrophils % 59.3 Lymphocytes % 28.9 Monocytes % 8.5 Eosinophils % 2.1 Basophils % 1.0 Nucleated RBC % 0.0 Absolute Neutrophils 5.30 Absolute Lymphocytes 2.58 Absolute Monocytes 0.76 Absolute Eosinophils 0.19 Absolute Basophils 0.09 PT INR APTT VBG pH VBG pCO2 VBG pO2 VBG HCO3 VBG Total CO2 VBG O2 Saturation VBG Base Excess Sodium 136 Potassium 3.4 L Chloride 98 Carbon Dioxide 32.2 H Anion Gap 5.8 BUN 21 H Creatinine 1.1 Estimated GFR/1.73 m2 >= 60.00 Glucose 122 H Calcium 9.4 Magnesium 2.1 Total Bilirubin 0.5 AST 28 ALT 41 Alkaline Phosphatase 122 H Troponin I < 50 NT-Pro-B Natriuret Pep 1256 H Total Protein 8.8 H Albumin 4.1 Lipase COVID-19 Source Nasal/Nares SARS-CoV-2 (PCR) Negative 05/01/22 05/01/22 05/01/22 02:23 02:23 02:23 WBC RBC Hgb Hct MCV MCH MCHC RDW Plt Count MPV Immature Gran % Neutrophils % Lymphocytes % Monocytes % Eosinophils % Basophils % Nucleated RBC % Absolute Neutrophils Absolute Lymphocytes Absolute Monocytes Absolute Eosinophils Absolute Basophils PT 11.7 H INR 1.2 H APTT 27.0 VBG pH 7.41 VBG pCO2 54 H VBG pO2 27 VBG HCO3 34 H VBG Total CO2 30 H VBG O2 Saturation 44 VBG Base Excess 9 H Sodium Potassium Chloride Carbon Dioxide Anion Gap BUN Creatinine Estimated GFR/1.73 m2 Glucose Calcium Magnesium Total Bilirubin AST ALT Alkaline Phosphatase Troponin I NT-Pro-B Natriuret Pep Total Protein Albumin Lipase 147 COVID-19 Source SARS-CoV-2 (PCR) 05/01/22 06:50 WBC RBC Hgb Hct MCV MCH MCHC RDW Plt Count MPV Immature Gran % Neutrophils % Lymphocytes % Monocytes % Eosinophils % Basophils % Nucleated RBC % Absolute Neutrophils Absolute Lymphocytes Absolute Monocytes Absolute Eosinophils Absolute Basophils PT INR APTT VBG pH VBG pCO2 VBG pO2 VBG HCO3 VBG Total CO2 VBG O2 Saturation VBG Base Excess Sodium Potassium Chloride Carbon Dioxide Anion Gap BUN Creatinine Estimated GFR/1.73 m2 Glucose Calcium Magnesium Total Bilirubin AST ALT Alkaline Phosphatase Troponin I < 50 NT-Pro-B Natriuret Pep Total Protein Albumin Lipase COVID-19 Source SARS-CoV-2 (PCR) Last Vital Signs Temp 36.5 C 05/01/22 07:28 Pulse 67 05/01/22 07:28 Resp 18 05/01/22 07:28 BP 131/79 05/01/22 07:28 Pulse Ox 96 05/01/22 07:28
[2022-05-01] MEDS: Rosuvastatin 10 MG TAB PO (08:06)
[2022-05-01] MEDS: Apixaban 5 MG TAB PO ×2 (08:07→19:31)
[2022-05-01] MEDS: Metoprolol 25 MG TAB PO ×2 (08:07→19:32)
[2022-05-01] MEDS: Potassium Chloride 20 MEQ TABCR 40 MEQ PO (08:07)
[2022-05-01] MEDS: Acetaminophen 325 MG TAB 650 MG PO (08:07)
--- NOTE | 2022-05-01 08:50 | W.CARDCONSUL ---
Date of service: 05/01/22 Time of Service: 08:51 Assessment and Plan Assessment and plan (1) Atrial fibrillation: Status: Chronic Assessment and plan: Patient has asymptomatic atrial fibrillation noted today. previously he has been on flecainide for a rhythm control strategy. At this point I would recommend discontinuation of flecainide. If he remains asymptomatic no additional antidysrhythmic therapy would be advised. If we think he is symptomatic with his atrial fibrillation could consider starting amiodarone He should continue Eliquis for stroke prevention as he has had 2 prior embolic strokes (2) Chest pain: Status: Acute Assessment and plan: He has no history of coronary artery disease. His chest pain is atypical, there is no evidence of myocardial necrosis. He had cardiac catheterization 11 years ago which was normal. He had a normal myocardial perfusion imaging study 3 years ago. I would not recommend repeat stress testing at this time (3) Abdominal pain: Status: Acute Assessment and plan: Evaluation as per hospitalist History of Present Illness History of Present Illness Chief Complaint: Chest tightness, abdominal discomfort Narrative: Cardiac evaluation is requested in this 81-year-old man who presented to the hospital yesterday reportedly because of chest tightness. History is obtained with the aid of a family member who helps with translation from Amharic. The patient also has history of prior stroke with moderate aphasia. He was reportedly in his usual state of health but described tightness in his chest. On arrival in the emergency room he was noted to have diffuse abdominal tenderness which has persisted. The chest tightness is located on both sides of the sternum, well localized, persistent, without evidence of myocardial necrosis Patient has a history of paroxysmal atrial fibrillation which dates back roughly to 2010. At that time he was in [place]. He had cardiac catheterization which disclosed no coronary artery disease and was treated with a rhythm control strategy since with flecainide. He has been seen here in [place], also at [facility] and quite recently he saw a biological technical officer over in [facility] where he lives part-time. Amlodipine was recently discontinued and he was started on Bumex. He last had a nuclear stress test in 2019, negative for myocardial ischemia He has had multiple echocardiograms which do not demonstrate any structural heart disease. Left ventricular function is normal He does not have a history of congestive heart failure He has had 2strokes, in 2018. Prior to that he had refused anticoagulation but was then started on apixaban for stroke prevention EKG performed in the emergency room on presentation shows atrial fibrillation with a right bundle branch block. The right bundle branch block is chronic Review of Systems Cardiovascular Cardiovascular: Reports as per HPI, Reports chest pain at rest, Reports irregular heart rhythm and Denies dyspnea Respiratory Respiratory: Denies dyspnea Gastrointestinal Gastrointestinal: Reports as per HPI and Reports abdominal pain PFSH All Active Problems Chest pain (Acute) Abdominal pain (Acute) SARS-CoV-2 positive (Acute ~12/01/21) High blood sugar (Acute) Fever (Acute) Insomnia (Chronic) Depression (Chronic) Osteoarthritis of knee (Acute) Pancreatitis (Chronic) GERD (gastroesophageal reflux disease) (Chronic) Hyperlipidemia (Acute) Hypertension (Chronic) Atrial fibrillation (Chronic) Left-sided cerebrovascular accident (CVA) (Acute) Medical History History of COVID-19 12/2020, received MAB Surgical History S/P hernia repair S/P knee surgery S/P TURP Social History Smoking/Tobacco Use Status: Former Tobacco Use Smoking risk assessment performed?: Yes Alcohol Intake: former Drug use: Never Substance use type: does not use Caregiver/Support person: Yes Household members: children Housing: house Number of Children: 4 Communication Needs: Language Barriers Do you need help understanding health information?: Often current occupation: retired Current gender identity: male What is your relationship status?: Panel score (0-1 are the most socially isolated patients): 0 What type of physical activity do you participate in: none Seatbelt use: always Drive intox or ride w/intox flatbed driver: No Working smoke detector in home: Yes Carbon monox detector in home: Yes Do you feel safe at home: Yes Exam Const Other: Elderly sitting in chair no acute distress Neck Other: No neck vein distention normal carotid upstrokes no bruits Resp Auscultation: clear to auscultation bilaterally Cardio Other: Irregularly irregular S2 widely split no murmur or gallop GI Other: Mild diffuse tenderness Extrem Other: No significant edema Results Last Vital Signs Temp 36.5 C 05/01/22 07:28 Pulse 67 05/01/22 07:28 Resp 18 05/01/22 07:28 BP 131/79 05/01/22 07:28 Pulse Ox 96 05/01/22 07:28 Labs Result diagrams: 05/01/22 02:23 05/01/22 02:23 Labs: Laboratory Results - last 24 hr 05/01/22 05/01/22 05/01/22 02:23 02:23 02:23 WBC 8.94 RBC 5.42 Hgb 15.3 Hct 48.3 MCV 89 MCH 28.2 MCHC 31.7 L RDW 13.5 Plt Count 204 MPV 10.1 Immature Gran % 0.2 Neutrophils % 59.3 Lymphocytes % 28.9 Monocytes % 8.5 Eosinophils % 2.1 Basophils % 1.0 Nucleated RBC % 0.0 Absolute Neutrophils 5.30 Absolute Lymphocytes 2.58 Absolute Monocytes 0.76 Absolute Eosinophils 0.19 Absolute Basophils 0.09 PT INR APTT VBG pH VBG pCO2 VBG pO2 VBG HCO3 VBG Total CO2 VBG O2 Saturation VBG Base Excess Sodium 136 Potassium 3.4 L Chloride 98 Carbon Dioxide 32.2 H Anion Gap 5.8 BUN 21 H Creatinine 1.1 Estimated GFR/1.73 m2 >= 60.00 Glucose 122 H Calcium 9.4 Magnesium 2.1 Total Bilirubin 0.5 AST 28 ALT 41 Alkaline Phosphatase 122 H Troponin I < 50 NT-Pro-B Natriuret Pep 1256 H Total Protein 8.8 H Albumin 4.1 Lipase COVID-19 Source Nasal/Nares SARS-CoV-2 (PCR) Negative 05/01/22 05/01/22 05/01/22 02:23 02:23 02:23 WBC RBC Hgb Hct MCV MCH MCHC RDW Plt Count MPV Immature Gran % Neutrophils % Lymphocytes % Monocytes % Eosinophils % Basophils % Nucleated RBC % Absolute Neutrophils Absolute Lymphocytes Absolute Monocytes Absolute Eosinophils Absolute Basophils PT 11.7 H INR 1.2 H APTT 27.0 VBG pH 7.41 VBG pCO2 54 H VBG pO2 27 VBG HCO3 34 H VBG Total CO2 30 H VBG O2 Saturation 44 VBG Base Excess 9 H Sodium Potassium Chloride Carbon Dioxide Anion Gap BUN Creatinine Estimated GFR/1.73 m2 Glucose Calcium Magnesium Total Bilirubin AST ALT Alkaline Phosphatase Troponin I NT-Pro-B Natriuret Pep Total Protein Albumin Lipase 147 COVID-19 Source SARS-CoV-2 (PCR) 05/01/22 06:50 WBC RBC Hgb Hct MCV MCH MCHC RDW Plt Count MPV Immature Gran % Neutrophils % Lymphocytes % Monocytes % Eosinophils % Basophils % Nucleated RBC % Absolute Neutrophils Absolute Lymphocytes Absolute Monocytes Absolute Eosinophils Absolute Basophils PT INR APTT VBG pH VBG pCO2 VBG pO2 VBG HCO3 VBG Total CO2 VBG O2 Saturation VBG Base Excess Sodium Potassium Chloride Carbon Dioxide Anion Gap BUN Creatinine Estimated GFR/1.73 m2 Glucose Calcium Magnesium Total Bilirubin AST ALT Alkaline Phosphatase Troponin I < 50 NT-Pro-B Natriuret Pep Total Protein Albumin Lipase COVID-19 Source SARS-CoV-2 (PCR)
--- NOTE | 2022-05-01 09:11 | PDOC.CMIN ---
- If Service Date Differs Date of service: 05/01/22 Time of Service: 09:11 Care Management Initial Assess REASON FOR HOSPITALIZATION:: Chest pain, Afib PAST MEDICAL HISTORY/PAST SURGICAL HISTORY:: PFSH. All Active Problems . Chest pain (Acute). Abdominal pain (Acute). SARS-CoV-2 positive (Acute ~12/01/21). High blood sugar (Acute). Fever (Acute). Insomnia (Chronic). Depression (Chronic). Osteoarthritis of knee (Acute). Pancreatitis (Chronic). GERD (gastroesophageal reflux disease) (Chronic). Hyperlipidemia (Acute). Hypertension (Chronic). Atrial fibrillation (Chronic). Left-sided cerebrovascular accident (CVA) (Acute). Medical History . History of COVID-19. 12/2020, received MAB. Surgical History . S/P hernia repair. S/P knee surgery. S/P TURP PREVIOUS FUNCTIONAL STATUS/SOCIAL/FAMILY SUPPORTS:: Red is currently staying with his daughter Sarah in [place]. He also stays with his son Laura in [facility]. Red transition's between the 2 homes, every 4 months. His children are very supportive. Red does not drive and has required assistance with his ADL's since his stroke in 2018. Red does not have any home services and spends time at [facility] 5 days/week. CURRENT FUNCTIONAL STATUS:: Red was sitting in his chair when CM met with him, he was not easy to engage in conversation. He is accompanied by his daughter Sarah who shared many of the details within this assessment. ADVANCE DIRECTIVES:: On file, [facility] is Sarah Bell Has patient been provided with info about the portal/API?: Yes Did the patient sign up for the portal?: No CODE STATUS:: Full Code INSURANCE COVERAGE / FINANCIAL ISSUES:: Medicare. [employer] CURRENT HOME/COMMUNITY SERVICES/EQUIPMENT:: [facility] Has a walker PRIMARY CARE PHYSICIAN:: Dr. Presley POTENTIAL DISCHARGE NEEDS:: Follow up appointment with Cardiology and PCP PATIENT/FAMILY EDUCATION NEEDS:: Review discharge instructions, limitations, medications and plan to follow up with community providers. ask me three. TRANSPORTATION:: Via private vehicle with family. PLAN:: Anticipate, Red will discharge home when medically ready per provider. He will follow up with community providers and discharge plan of care as prescribed.
[2022-05-01] MEDS: Docusate Sodium 100 MG/10 ML CUP PO ×2 (09:13→19:32)
[2022-05-01] MEDS: Bumetanide 1 MG/4 ML VIAL IVP ×2 (10:19→16:34)
--- NOTE | 2022-05-01 10:22 | PGE_ITS ---
Date of Service Date of service: 05/01/22 Time of Service: : Assessment and Plan Assessment and plan (1) Abdominal pain: Status: Acute Assessment and plan: Abomen, soft, non-tender, BS present. CT chest and abd - no acute findings - currently no pain Last BM 2 days ago - will schedule miralax, encourage fluids (2) Chest pain: Status: Acute Assessment and plan: He has no history of coronary artery disease. Seen by cards does not recommend stress test - he has no chest pain (3) Atrial fibrillation: Status: Chronic Assessment and plan: Patient has asymptomatic atrial fibrillation. Eliquis for stroke prevention -- he has had 2 prior embolic strokes (4) Chronic right shoulder pain: Status: Acute Assessment and plan: Chronic rotator cuff tendinopathy of his right shoulder pain - uses lidocaine patch at home, with good relief - will order here Eval by PT - no formal recommendations Discussed with Dr Lacy Subjective Subjective Patient reports: feels better, tolerating a regular diet, voiding w/o difficulty and bowel movement; denies diarrhea, nausea, vomiting, shortness of breath or fever Interval history since last seen: C/O chronic pain to right shoulder, no new injury, uses lidocaine patch at home. He has had no abdominal pain today. He is eating and drinking Exam Const General: cooperative, healthy appearing, comfortable and no acute distress Nutritional Appearance: average body habitus Orientation: alert, awake, oriented x3 and other (understands turkish, however first language is Korean. ) [facility] Head: normal to inspection Eyes General: appearance normal, both eyes and all related structures Neck Neck: normal visual inspection, full ROM and no lymphadenopathy Chest Chest: normal inspection of the chest, normal palpation of entire chest wall and no localized rib tenderness Resp Effort & Inspection: normal respiratory effort and able to speak in complete sentences Auscultation: clear to auscultation bilaterally Cardio Jugular venous pressure: no JVD Rate: abnormal rate Rhythm: abnormal rhythm GI Inspection: normal to inspection and non-distended Palpation: soft Percussion: normal to percussion Auscultation: normal bowel sounds General: bladder normal to palpation and No CVA tenderness Skin General skin exam: no rashes or lesions noted Neuro General: patient alert, patient awake, patient oriented x3 and moves all extremities Extrem General: normal to inspection, full ROM, capillary refill normal and no clubbing, cyanosis or edema Psych Appearance: grossly normal Mental Status: mental status grossly normal Speech and Movement: speech and movement normal Mood: congruent mood Affect: normal affect Attitude: cooperative Thought Process: normal Thought Content: normal Insight: insight good Objective Last Vital Signs Temp 36.5 C 05/01/22 07:28 Pulse 67 05/01/22 07:28 Resp 18 05/01/22 07:28 BP 131/79 05/01/22 07:28 Pulse Ox 96 05/01/22 07:28 Laboratory Results - last 24 hr 05/01/22 05/01/22 05/01/22 02:23 02:23 02:23 WBC 8.94 RBC 5.42 Hgb 15.3 Hct 48.3 MCV 89 MCH 28.2 MCHC 31.7 L RDW 13.5 Plt Count 204 MPV 10.1 Immature Gran % 0.2 Neutrophils % 59.3 Lymphocytes % 28.9 Monocytes % 8.5 Eosinophils % 2.1 Basophils % 1.0 Nucleated RBC % 0.0 Absolute Neutrophils 5.30 Absolute Lymphocytes 2.58 Absolute Monocytes 0.76 Absolute Eosinophils 0.19 Absolute Basophils 0.09 PT INR APTT VBG pH VBG pCO2 VBG pO2 VBG HCO3 VBG Total CO2 VBG O2 Saturation VBG Base Excess Sodium 136 Potassium 3.4 L Chloride 98 Carbon Dioxide 32.2 H Anion Gap 5.8 BUN 21 H Creatinine 1.1 Estimated GFR/1.73 m2 >= 60.00 Glucose 122 H Calcium 9.4 Magnesium 2.1 Total Bilirubin 0.5 AST 28 ALT 41 Alkaline Phosphatase 122 H Troponin I < 50 NT-Pro-B Natriuret Pep 1256 H Total Protein 8.8 H Albumin 4.1 Lipase COVID-19 Source Nasal/Nares SARS-CoV-2 (PCR) Negative 05/01/22 05/01/22 05/01/22 02:23 02:23 02:23 WBC RBC Hgb Hct MCV MCH MCHC RDW Plt Count MPV Immature Gran % Neutrophils % Lymphocytes % Monocytes % Eosinophils % Basophils % Nucleated RBC % Absolute Neutrophils Absolute Lymphocytes Absolute Monocytes Absolute Eosinophils Absolute Basophils PT 11.7 H INR 1.2 H APTT 27.0 VBG pH 7.41 VBG pCO2 54 H VBG pO2 27 VBG HCO3 34 H VBG Total CO2 30 H VBG O2 Saturation 44 VBG Base Excess 9 H Sodium Potassium Chloride Carbon Dioxide Anion Gap BUN Creatinine Estimated GFR/1.73 m2 Glucose Calcium Magnesium Total Bilirubin AST ALT Alkaline Phosphatase Troponin I NT-Pro-B Natriuret Pep Total Protein Albumin Lipase 147 COVID-19 Source SARS-CoV-2 (PCR) 05/01/22 06:50 WBC RBC Hgb Hct MCV MCH MCHC RDW Plt Count MPV Immature Gran % Neutrophils % Lymphocytes % Monocytes % Eosinophils % Basophils % Nucleated RBC % Absolute Neutrophils Absolute Lymphocytes Absolute Monocytes Absolute Eosinophils Absolute Basophils PT INR APTT VBG pH VBG pCO2 VBG pO2 VBG HCO3 VBG Total CO2 VBG O2 Saturation VBG Base Excess Sodium Potassium Chloride Carbon Dioxide Anion Gap BUN Creatinine Estimated GFR/1.73 m2 Glucose Calcium Magnesium Total Bilirubin AST ALT Alkaline Phosphatase Troponin I < 50 NT-Pro-B Natriuret Pep Total Protein Albumin Lipase COVID-19 Source SARS-CoV-2 (PCR) Reviewed Pertinent PMH: Yes
--- NOTE | 2022-05-01 10:30 | IN_ITS ---
PT Notes Visit Reasons: Atypical Chest Pain,Right Abdominal Pain Inpatient Physical Therapy Evaluation Date: 05/01/2022 Referring Doctor: Anni Lacy MD PT Orders: PT CONSULT: Limited ability Precautions: Fall precautions Patient Profile/Admitting Diagnosis: 81-year-old male admitted earlier with chest and abdominal pain PMHX: All Active Problems? Chest pain (Acute) Abdominal pain (Acute) SARS-CoV-2 positive (Acute ~12/01/21) High blood sugar (Acute) Fever (Acute) Insomnia (Chronic) Depression (Chronic) Osteoarthritis of knee (Acute) Pancreatitis (Chronic) GERD (gastroesophageal reflux disease) (Chronic) Hyperlipidemia (Acute) Hypertension (Chronic) Atrial fibrillation (Chronic) Left-sided cerebrovascular accident (CVA) (Acute) Medical History? History of COVID-19 12/2020, received MAB Surgical History? S/P hernia repair S/P knee surgery S/P TURP Social History/Home Situation: Lives with his daughter in this area part of the year, and his son the remainder of the year. He visits [place] [facility] [facility] 5 days/week. His daughter's home has 2 steps and a railing entering the home, and he lives on the first floor. His bathroom has handicapped equipment with a tub seat, grab bars and flexible shower hose. Current Functional Limitations: Independent with ADLs although occasionally require some assistance with his socks and shoes, etc., preparing for showers etc. Equipment Owned/DME: 4 WW Subjective: Patient complains of intermittent right knee and abdominal pain. The discomfort generally occurs with movement and palpation Objective: General Observation: Pleasant, cooperative Mental Status: Alert and oriented x3 Pain: Intermittent intense right knee pain at 7/10 on a VAS Vital Signs: His resting pulse is 71 bpm and O2 sat is 92%; following ambulation his pulse is 64 bpm and O2 sat is 95% ROM: His active shoulder movements are approximately 105 degrees with endrange discomfort suprahumerally on the right. His right shoulder external rotation with his elbow tucked into his side is approximately 30 degrees with endrange pain. He has good rotation of the right hip but this creates knee pain, and his right knee motion is -10 to approximately 90 degrees with endrange discomfort. (He status post right TKA) bilateral talocrural and subtalar movements are hypomobile, and endrange right ankle movements creates his knee pain. He has functional range of motion of the remaining articular structures hypomobile Strength: Has full volitional movement throughout and strength is generally rated +4/5, except resisted right shoulder abduction and external rotation which also creates his lateral humeral pain. He has atrophic changes throughout the right thigh musculature, secondary to history of polio as well as chronic knee pain. His right quad strength is 4/5 but pain with resistance throughout the knee. Neuro: KJ/AJ's are +2 and symmetrical. Light sensation and proprioception are intact. He is hypersensitive when testing Babinski. Fingertips to nose is accurate without ataxia, rapid repetitive arm movements are unimpaired. Bed Mobility/Transfers: Independent with assuming the supine to sitting to standing positions with standby supervision Gait: Ambulated with a 4WW with standby supervision and has a stable gait. Distance was limited to approximately 20 feet in his room. He is able walk on his heels and toes while using the walker, but heel and toe walking on the right creates knee pain. Balance: Hendrickson balance test was performed and he scored a 38/56. Score 45 or less indicates a fall risk Static Sitting: Good Dynamic Sitting: Good Static Standing: Good Dynamic Standing: Fair Special Tests: Mobility Limitations Standardized Measure [facility] AM-PAC 6 clicks Basic Mobility Inpatient Short Form: Raw Score: 19 standardized Score: 3.55 CMS Score: 41.77% Informed Consent/Education: Patient instructed in purpose of PT consult and plan of care. Assessment: Patient is a 81year old male referred to physical therapy services with the diagnosis of chest and abdominal pain. Patient presents with clinical signs and symptoms consistent with intermittent abdominal and right knee discomfort which is currently being worked up., He was independent with his bed mobility activities and stable gait, and his daughter was present during the examination, and feels that this comparable to his performance at home. I encouraged him to remain active while in the hospital with frequent walks in the hallway with nursing staff, etc. to maintain his current strength and functional status. No formal PT is indicated at this time. Note that the patient also has a chronic rotator cuff tendinopathy of his right shoulder along with chronic r ight knee pain even though he has had TKA. Patient is assessed as a Moderate 89045 complexity based on the following: History: Comorbidities and social history Examination: See above for functional imitations impairments Presentation: Evolving Decision Making: Moderate complexity based on his clinical findings Goals: Goals X1 week 1. Supine-Sit independent 2. Sit-Supine independent 3. Sit-Stand independent 4. Stand-Sit independent 5. Bed-Chair independent 6. Chair-Bed independent 7. Gait ambulation with a 4 WW with stable gait These goals have been met Plan of Care/Treatment Plan: The session consisted of the evaluation, along with encouraging patient to remain active while in the hospital. No formal physical therapy is needed DISCHARGE RECOMMENDATIONS: Home with no services TREATMENT CODE/TIME: 9716 2/45 minutes Disclaimer: This note was created using [email or web address] voice recognition software. It was reviewed for major content. However, there may be multiple small discrepancies and errors due to the voice recognition aspects of the software.
[2022-05-01] MEDS: Potassium Chloride 20 MEQ TABCR PO (13:14)
[2022-05-01] MEDS: Normal Saline 500 ML 50 ML IV (13:14)
[2022-05-01] MEDS: POTASSIUM CHLORIDE 20 MEQ/100 ML BAG 50 MEQ IVPB ×2 (13:14→15:40)
[2022-05-01] MEDS: Polyethylene Glycol 3350 17 GM PACKET PO (17:29)
[2022-05-02 03:00] VITALS: BP 134/85; PULSE 63; RESP 16; TEMP 36.4; O2SAT 95
[2022-05-02 07:00] VITALS: PULSE 65
[2022-05-02 07:13] LABS: Abs Immature Grans 0.04 10^3/uL (0.0-0.06); Absolute Basophil Count 0.07 10^3/uL (0.0-0.2); Absolute Eosinophil Count 0.18 10^3/uL (0.0-0.7); Absolute Lymphocyte Count 2.33 10^3/uL (1.2-3.4); Absolute Monocyte Count 0.79 10^3/uL (0.1-0.8); Absolute Neutrophil Count 5.35 10^3/uL (1.2-6.7); Basophils % 0.8; Eosinophils % 2.1; HCT 47.2 % (40.0-50.0); Immature Grans % 0.5; Lymphocytes % 26.6; MCH 28.1 pg (27.0-33.0); MCHC 31.8 % (32.0-36.0); MCV 88 fL (80-95); MPV 10.3 fL (8.0-11.0); Platelet Count 189 10^3/uL (130-400); RBC 5.34 10^6/uL (4.36-5.78); RDW 13.5 % (11.8-14.1); RDW-SD 43.8 fL; WBC 8.76 10^3/uL (4.4-10.8)
[2022-05-02 07:32] LABS: ALT 40 U/L (16-63); AST 25 U/L (15-37); Albumin 3.7 g/dL (3.4-5.0); Alkaline Phosphatase 110 U/L (46-116); Anion Gap 7.9 mmol/L (3-11); BUN 20 mg/dL (7-18); Bilirubin, Total 0.7 mg/dL (0.2-1.0); CO2 31.1 mmol/L (21.0-32.0); CREATININE 1.2 mg/dL (0.70-1.30); Calcium 9.3 mg/dL (8.5-10.1); Chloride 102 mmol/L (98-107); Estimated GFR 58.11 (mL/min/1.73m2); Glucose 114 mg/dL (74-106); Magnesium 2.2 mg/dL (1.8-2.4); Potassium 4.2 mmol/L (3.5-5.1); Sodium 141 mmol/L (136-145); Total Protein 7.8 g/dL (6.4-8.2)
[2022-05-02 07:39] VITALS: BP 138/88; PULSE 63; RESP 18; TEMP 36; O2SAT 93
[2022-05-02] MEDS: Docusate Sodium 100 MG/10 ML CUP PO (08:42)
[2022-05-02] MEDS: Bumetanide 1 MG/4 ML VIAL IVP (08:43)
[2022-05-02] MEDS: Normal Saline Flush 10 ML SYR IVP (08:43)
[2022-05-02] MEDS: Polyethylene Glycol 3350 17 GM PACKET PO (08:43)
[2022-05-02] MEDS: Senna TAB 2 TAB PO (08:44)
[2022-05-02] MEDS: Metoprolol 25 MG TAB PO (08:44)
[2022-05-02] MEDS: Apixaban 5 MG TAB PO (08:44)
[2022-05-02] MEDS: Rosuvastatin 10 MG TAB PO (08:44)
[2022-05-02] MEDS: Potassium Chloride 20 MEQ TABCR PO (08:44)
--- NOTE | 2022-05-02 09:40 | W.PM.PROGNOT ---
Date of Service Date of service: 05/02/22 Time of Service: 09:40 Subjective Subjective Patient reports: no new complaints and no bowel movement Objective Last Vital Signs Temp 36 C L 05/02/22 07:39 Pulse 63 05/02/22 07:39 Resp 18 05/02/22 07:39 BP 138/88 05/02/22 07:39 Pulse Ox 93 05/02/22 07:39 Laboratory Results - last 24 hr 05/02/22 05/02/22 06:45 06:45 WBC 8.76 RBC 5.34 Hgb 15.0 Hct 47.2 MCV 88 MCH 28.1 MCHC 31.8 L RDW 13.5 Plt Count 189 MPV 10.3 Immature Gran % 0.5 Neutrophils % 61.0 Lymphocytes % 26.6 Monocytes % 9.0 Eosinophils % 2.1 Basophils % 0.8 Nucleated RBC % 0.0 Absolute Neutrophils 5.35 Absolute Lymphocytes 2.33 Absolute Monocytes 0.79 Absolute Eosinophils 0.18 Absolute Basophils 0.07 Sodium 141 Potassium 4.2 Chloride 102 Carbon Dioxide 31.1 Anion Gap 7.9 BUN 20 H Creatinine 1.2 Estimated GFR/1.73 m2 58.11 Glucose 114 H Calcium 9.3 Magnesium 2.2 Total Bilirubin 0.7 AST 25 ALT 40 Alkaline Phosphatase 110 Total Protein 7.8 Albumin 3.7
[2022-05-02 11:39] VITALS: BP 111/61; PULSE 61; RESP 18; TEMP 36.1; O2SAT 100
--- NOTE | 2022-05-02 11:41 | DSE_ITS ---
Date of service: 05/02/22 Time of Service: 11:41 DS: Diagnosis Discharge Diagnosis (1) Chest pain: Status: Resolved (2) Abdominal pain: Status: Resolved (3) Atrial fibrillation: Status: Chronic (4) Left-sided cerebrovascular accident (CVA): Asessment and Plan: History of; not on this admission; Residual R-sided deficits. Discharge Plan Disposition Patient Disposition: HOME Condition: Stable Discharge Details Reason For Visit: Atypical Chest Pain,Right Abdominal Pain Admit Date/Time: 05/01/22 04:49 Admit Provider: Jose Miguel Marino Attending Provider: Jose Miguel Marino Primary Care Provider: Douglas Presley [facility] Course Hospital Course: This 81 yo male with past medical history of GERD, Afib, HTN, HLD, CVA x 2 (2017) presented to the [facility] ED 05/01/22 with the complaint of chest pain, abdominal pain and dyspnea. He was accompanied by his daughter. She reported he woke up and came to her stating he was having chest pain and felt short of breath. He denied any fever or cough. In the ED here he described the pain to be localized to the chest, constant, not relieved by anything and nothing made it worse.Aortic dissection was ruled out by CT. Chest, abdomen and pelvis CT negative. His lungs were clear in the emergency department and he did not have an increased work of breathing. He was given a dose of lasix in the ED, there was a question of mild pulmonary edema and his proBNP being over 1000. His troponins x 3 were negative. His EKG showed Afib and right bundle branch block, with a controlled rate in the 70's. He was admitted to the medical surgical unit on telemetry for observation. Cardiology saw him and recommended he stop Flecanide, continue Eliquis for stroke prevention with his history of 2 prior embolic strokes. Amiodarone was recommended should Afib become an issue. Stress testing was not recommended at this time. He has not reported any chest pain, shortness of breath or abdominal pain since admission. His last BM was 3 days ago, which he reports as normal. His vital signs are stable, labs are unremarkable. Physical therapy evaluated him and they do not feel he requires any services at home. I spoke with his daughter who reported Red had a huge cardiology work up a couple of weeks ago. She will get those records and give them to his PCP. It is unclear if he had an echocardiogram or not. I asked her to have those records sent to his PCP for review. We will hold off on ordering an echocardogram and have his PCP follow up. He is discharged home with his daughter stable. Care for patient as well as completion of his discharge summary took 90 minutes. ? Discussed with Dr Lacy Home Meds and New Rx's Prescriptions: Continued Senokot Extra Strength 17.2 mg tablet 17.2 mg PO DAILY acetaminophen 325 mg tablet 650 mg PO Q4H PRN metoprolol tartrate 25 mg tablet 25 mg PO BID Qty: 180 3RF apixaban 5 mg tablet 5 mg PO BID Qty: 180 3RF rosuvastatin 10 mg tablet 10 mg PO DAILY Qty: 90 3RF Rx Instructions: Covering for TM -- new dose per [place] provider bumetanide 1 mg Tablet 1 mg PO BID Discontinued flecainide 100 mg tablet 100 mg PO Q12H Qty: 180 3RF No Action (DME) Shower Chair Qty: 1 0RF Rx Instructions: Red would benefit from a shower chair to assist in hygiene given his progress with stroke. Discharge Instructions Instructions: Chest Pain (DC), Acute Abdominal Pain (DC) Stand Alone Forms: Nursing Discharge Form Referrals: Marielle Carrillo MD [ [facility] STAFF PHYSICIAN] - Douglas Presley DO [Primary Care Provider] - (Please call Wednesday to make a follow up appointment.) Activity:: Activity as Tolerated Equipment/Supplies:: No Equipment Needed Diet:: Low Sodium Discharge Orders Discharge Orders: Discharge Order (Routine); Ordered 05/02/22 Ordered By: Mila Elam Other Ambulatory Orders: Cardiac Event Recorder (Routine) Timeframe: 1 Week Facility: [facility] - Location: Respiratory Therapy Ordered By: Anni Lacy Discharge Data Discharge Date/Time-TO BE ENTERED AT DEPARTURE: 05/02/22 16:55 DS: Summary Time Spent with Patient providing and/or coordinating discharge services: Greater than 30 minutes Status at Discharge Functional status at discharge: uses cane/walker Overall status at discharge: patient is progressing back to baseline Mental Status: mental status grossly normal Speech and Movement: speech and movement normal Mood: congruent mood Affect: normal affect Exam Const General: cooperative, healthy appearing, comfortable and no acute distress Nutritional Appearance: average body habitus Orientation: alert, awake, oriented x3 and other (understands korean, however first language is Rwandan. ) HENMT Head: normal to inspection Eyes General: appearance normal, both eyes and all related structures Neck Neck: normal visual inspection, full ROM and no lymphadenopathy Chest Chest: normal inspection of the chest, normal palpation of entire chest wall and no localized rib tenderness Resp Effort & Inspection: normal respiratory effort and able to speak in complete sentences Auscultation: clear to auscultation bilaterally Cardio Jugular venous pressure: no JVD Rate: abnormal rate Rhythm: abnormal rhythm GI Inspection: normal to inspection and non-distended Palpation: soft Percussion: normal to percussion Auscultation: normal bowel sounds General: bladder normal to palpation and No CVA tenderness Skin General skin exam: no rashes or lesions noted Neuro General: patient alert, patient awake, patient oriented x3 and moves all extremities Extrem General: normal to inspection, full ROM, capillary refill normal and no clubbing, cyanosis or edema Psych Appearance: grossly normal Mental Status: mental status grossly normal Speech and Movement: speech and movement normal Mood: congruent mood Affect: normal affect Attitude: cooperative Thought Process: normal Thought Content: normal Insight: insight good DS: Data Vitals/I&O Vitals and I&O: Vital Signs Temperature 36.1 C L 05/02/22 11:39 Temperature Source Tympanic 05/02/22 11:39 Pulse 61 05/02/22 11:39 Pulse Rhythm Irregular 05/02/22 09:35 Respiratory Rate 18 05/02/22 11:39 Respiratory Effort Non-Labored 05/02/22 09:35 Respiratory Depth Normal 05/02/22 09:35 Respiratory Pattern Normal 05/02/22 09:35 Blood Pressure 111/61 05/02/22 11:39 Blood Pressure Position Sitting 05/01/22 02:08 Pulse Oximetry 100 05/02/22 11:39 Oxygen Delivery Method Room Air 05/02/22 11:39 Oxygen Flow Rate 0 05/02/22 11:39 Pain Level 0 05/02/22 11:39 Comment 05/02/22 03:00 Intake & Output 05/01/22 05/01/22 05/02/22 11:59 23:59 11:59 Intake Total 990 / 2151.667 1161.667 / 2151.667 Output Total 200 / 200 50 / 50 Balance 990 / 1.667 961.667 / 1.667 -50 / -50 Weight 68.2 kg 68.577 kg Intake: IV 30 / 471.667 441.667 / 471.667 Oral 960 / 1680 720 / 1680 Output: Urine 200 / 200 50 / 50 Other: Urine Color Yellow Pale Urine Appearance Clear Clear Urine Odor Normal Normal Comment Void x1 in the toilet. unclear amount of urine. only some made it into the hat. Voiding Methods Toilet Toilet Toilet Data Completed and Pending Completed studies during hospitalization [Text1]: CTA chest/abdomen/pelvis: No acute abnormality.? Labs on day of discharge: Labs from last 24 hours 05/02/22 05/02/22 06:45 06:45 WBC 8.76 RBC 5.34 Hgb 15.0 Hct 47.2 MCV 88 MCH 28.1 MCHC 31.8 L RDW 13.5 Plt Count 189 MPV 10.3 Immature Gran % 0.5 Neutrophils % 61.0 Lymphocytes % 26.6 Monocytes % 9.0 Eosinophils % 2.1 Basophils % 0.8 Nucleated RBC % 0.0 Absolute Neutrophils 5.35 Absolute Lymphocytes 2.33 Absolute Monocytes 0.79 Absolute Eosinophils 0.18 Absolute Basophils 0.07 Sodium 141 Potassium 4.2 Chloride 102 Carbon Dioxide 31.1 Anion Gap 7.9 BUN 20 H Creatinine 1.2 Estimated GFR/1.73 m2 58.11 Glucose 114 H Calcium 9.3 Magnesium 2.2 Total Bilirubin 0.7 AST 25 ALT 40 Alkaline Phosphatase 110 Total Protein 7.8 Albumin 3.7 PFSH All Active Problems (Updated 05/03/22 @ 00:03 by ISIDRA FABIAN) Chronic right shoulder pain (Acute) SARS-CoV-2 positive (Acute ~12/01/21) High blood sugar (Acute) Fever (Acute) Insomnia (Chronic) Depression (Chronic) Osteoarthritis of knee (Acute) Pancreatitis (Chronic) GERD (gastroesophageal reflux disease) (Chronic) Hyperlipidemia (Acute) Hypertension (Chronic) Atrial fibrillation (Chronic) Medical History History of COVID-19 12/2020, received MAB Surgical History S/P hernia repair S/P knee surgery S/P TURP Social History Smoking/Tobacco Use Status: Former Tobacco Use Smoking risk assessment performed?: Yes Alcohol Intake: former Drug use: Never Substance use type: does not use Caregiver/Support person: Yes Household members: children Housing: house Number of Children: 4 Communication Needs: Language Barriers Do you need help understanding health information?: Often current occupation: retired Current gender identity: male What is your relationship status?: Panel score (0-1 are the most socially isolated patients): 0 What type of physical activity do you participate in: none Seatbelt use: always 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
--- NOTE | 2022-05-02 12:22 | NUR.NOTE ---
Nursing Note: Patient was adamant that he had a bm yesterday, he refused a suppository. Patient could not be convinced otherwise.
--- NOTE | 2022-05-02 16:51 | PDOC.CMDIS ---
- If Service Date Differs Date of service: 05/02/22 Time of Service: 16:51 LACE Index Scoring Tool - Questions: Length of Stay (in days): 1 Acuity (Admit via E.D.?): Yes Comorbidities: Cerebrovascular Disease E.D. Visits: 1 - Answers: Total Score: 6 Risk of Readmission: Low Risk Care Management Discharge Reason for Hospitalization: Chest pain, Afib Discharge Plan: Red is discharged home with no new services. He will follow up with his PCP and his plan of care as prescribed. He is transported home via private vehicle by family. Patient/Family Education Needs: Review of discharge instructions and discuss Ask Me Three.
== END 2022-05-02 16:55 | disposition home or self-care (01) ==
LOC: ER 05:13 → MS 08:19
PROVIDERS: Admitting Provider Family Medicine; Emergency Provider Emergency Medicine; PCP Family Medicine; Visit Provider Family Medicine
DX: R07.89 Other chest pain; R10.9 Unspecified abdominal pain; R06.00 Dyspnea, unspecified; I48.0 Paroxysmal atrial fibrillation; K21.9 Gastro-esophageal reflux disease without esophagitis; I45.10 Unspecified right bundle-branch block; I10 Essential (primary) hypertension; E78.5 Hyperlipidemia, unspecified; Z79.01 Long term (current) use of anticoagulants; Z79.899 Other long term (current) drug therapy; Z86.16 Personal history of COVID-19; R73.9 Hyperglycemia, unspecified; G47.00 Insomnia, unspecified; F32.A Depression, unspecified; K86.1 Other chronic pancreatitis; G89.29 Other chronic pain; Z87.891 Personal history of nicotine dependence; I69.351 Hemiplegia and hemiparesis following cerebral infarction affecting right dominant side; Z20.822 Contact with and (suspected) exposure to COVID-19; M75.101 Unspecified rotator cuff tear or rupture of right shoulder, not specified as traumatic
CPT/HCPCS: 36415; 71275; 80053; 82805; 83690; 87635; 93005; 96365; 96366; 96374; 96375; 96376; 97162; 99219; 99222; 99285; 74174; 83735; 83880; 84484; 85025; 85610; 85730; 93010; 99217; 99220; G0378; J1941; J3010; J3480; J3490

== ENCOUNTER 2022-05-15 02:34 | Outpatient (CLI) | payer MEDICARE, OTHER, SELFPAY | END 2022-05-15 02:35 | disposition home or self-care (01) | LOC: RT 02:34 | PROVIDERS: PCP Family Medicine; Visit Provider Internal Medicine ==

== ENCOUNTER 2022-05-19 03:09 | Outpatient (CLI) | payer MEDICARE, OTHER, SELFPAY | END 2022-05-19 03:10 | disposition home or self-care (01) | PROVIDERS: PCP Family Medicine; Visit Provider Family Medicine ==

== ENCOUNTER 2023-02-03 03:33 | Emergency (ER) | payer MEDICARE, BC, OTHER, SELFPAY ==
[2023-02-03 03:37] VITALS: BP 152/74; PULSE 82; RESP 18; TEMP 36.4; O2SAT 96
--- NOTE | 2023-02-03 03:56 | ED.GENADUL_ITS ---
Discharge Plan Disposition Patient Disposition: Home Condition: Improving Discharge Details Clinical Impression: Gums, bleeding, S/P tooth extraction Primary Care Provider: Douglas Presley ED Provider: Radha Rasheed Home Meds and New Rx's Prescriptions: Continued (DME) Shower Chair Qty: 1 0RF Rx Instructions: Red would benefit from a shower chair to assist in hygiene given his progress with stroke. Senokot Extra Strength 17.2 mg tablet 17.2 mg PO DAILY acetaminophen 325 mg tablet 650 mg PO Q4H PRN rosuvastatin 10 mg tablet 10 mg PO DAILY Qty: 90 3RF Rx Instructions: Covering for TM -- new dose per [place] provider metoprolol tartrate 25 mg tablet 25 mg PO BID Qty: 180 3RF apixaban 5 mg tablet 5 mg PO BID Qty: 180 3RF Paxlovid (EUA) 150-100 mg tablets,dose pack See Rx Instructions PO PER PKG DIR Qty: 20 0RF Rx Instructions: PO PER PKG DIR bumetanide 1 mg tablet 1 mg PO BID Qty: 180 3RF Discharge Instructions Instructions: Tooth Extraction (DC) Additional Instructions: Your bleeding appears to be controlled at this time. There was hemostatic gauze called Surgicel saturated with a medication called Tranexamic acid placed at the site of bleeding to help form a blood clot and stop the bleeding. Do not remove the gauze until you follow-up with your dentist this morning. Take caution to not swallow this thin layer of gauze. Avoid hot liquids or foods as this may cause swelling and increased risk of bleeding. Follow-up with your dentist appointment at 8am this morning. Discuss with your dentist or your primary care doctor whether it is okay to hold your Eliquis for 1 to 2 days to help with controlling the bleeding. Return immediately to the emergency department if you develop any worsening or new concerning symptoms. Discharge Data Discharge Date/Time-TO BE ENTERED AT DEPARTURE: 02/03/23 06:03 Discharge Physician: Radha Rasheed Medical Decision Making 4765 -- 82-year-old man with a history of hypertension, hyperlipidemia, GERD, depression and atrial fibrillation on Eliquis presents for bleeding at the site of 2 dental extractions for the past 6 hours. Bleeding previously stopped and then restarted 2 hours ago. Multiple teeth missing throughout. Sites of bleeding are at where tooth #21 and 24 would be at site of recent extraction. We will try silver nitrate or topical TXA. 0545 --initially attempted silver nitrate sticks and TXA on 2 x 2 gauze but bleeding continued. Then applied TXA to Surgicel with 2 x 2 gauze and Curlex gauze on top with mouth closed to apply pressure and bleeding appears to have stopped. Daughter feels comfortable taking patient home at this time. He has a dentist appointment at 8 AM this morning. Advised to not remove the gauze until follow-up with the dentist. Advised to discuss whether okay to hold his Eliquis for 1 to 2 days to help with control bleeding. Medical Records Medical records reviewed: Yes I reviewed the patient's medical records. HPI General Mode of arrival: ambulatory . Date/Time Provider Initiated Documentation: 02/03/23 03:49 . Limitations to Documentation: no limitations . Information obtained by: patient . HPI Narrative: Patient is an 82-year-old male with a history of hypertension, hyperlipidemia, GERD, atrial fibrillation on Eliquis who presents for bleeding at the site of dental extraction which occurred 9 days ago. Daughter states that patient started with bleeding about 6 hours ago before he went to bed at 930 last night. She states it stopped and then the bleeding returned about 2 hours ago. She he is also complaining of some pain in the area. Denies any fever. She states she called the dentist yesterday but there was no call back. Related Data Home Medications Medication Instructions Recorded Confirmed acetaminophen 325 mg tablet 650 mg PO Q4H PRN 02/16/19 02/03/23 Shower Chair #1 ea 06/21/19 06/12/21 sennosides 17.2 mg tablet (Senokot 17.2 mg PO DAILY 05/22/21 02/03/23 Extra Strength) rosuvastatin 10 mg tablet 10 mg PO DAILY #90 tab-caps 09/09/21 02/03/23 metoprolol tartrate 25 mg tablet 25 mg PO BID #180 tab-caps 06/22/22 02/03/23 apixaban 5 mg tablet 5 mg PO BID #180 tabs 12/18/22 02/03/23 nirmatrelvir 150 mg-ritonavir 100 See Rx Instructions PO PER PKG DIR 12/22/22 02/03/23 mg tablets in a dose pack (EUA) #20 dose pk (Paxlovid) bumetanide 1 mg tablet 1 mg PO BID #180 tabs 01/25/23 02/03/23 Previous Rx's Medication Instructions Recorded Shower Chair #1 ea 06/21/19 rosuvastatin 10 mg tablet 10 mg PO DAILY #90 tab-caps 09/09/21 metoprolol tartrate 25 mg tablet 25 mg PO BID #180 tab-caps 06/22/22 apixaban 5 mg tablet 5 mg PO BID #180 tabs 12/18/22 nirmatrelvir 150 mg-ritonavir 100 See Rx Instructions PO PER PKG DIR 12/22/22 mg tablets in a dose pack (EUA) #20 dose pk (Paxlovid) bumetanide 1 mg tablet 1 mg PO BID #180 tabs 01/25/23 Allergies Allergy/AdvReac Type Severity Reaction Status Date / Time codeine AdvReac Intermediate bloated Verified 02/03/23 03:46 General Stated Complaint: DentalOral NIYA: 3 Review of Systems All systems reviewed & are unremarkable except as noted in HPI and below Constitutional Constitutional: Reports as per HPI, Denies chills and Denies fever(s) Eyes Eyes: Denies blurry vision ENT Ears, Nose, Mouth, and Throat: Denies dizziness, Denies sore throat and Denies throat swelling Comments: dental bleeding Cardiovascular Cardiovascular: Denies chest pain and Denies dyspnea Respiratory Respiratory: Denies cough and Denies dyspnea Gastrointestinal Gastrointestinal: Denies abdominal pain, Denies diarrhea and Denies vomiting Genitourinary Genitourinary: Denies hematuria and Denies dysuria Musculoskeletal Musculoskeletal: Denies back pain and Denies numbness Integumentary/Breasts Skin/Breast: Denies lesions and Denies rash Neurologic Neurologic: Denies dizziness, Denies localized weakness and Denies numbness Allergic/Immunologic Allergic/Immunologic: Denies throat swelling PFSH All Active Problems (Updated 02/03/23 @ 05:16 by Radha Rasheed DO) Gums, bleeding (Acute) S/P tooth extraction (Acute) Chronic right shoulder pain (Acute) SARS-CoV-2 positive (Acute ~12/01/21) 12/21/22 High blood sugar (Acute) Fever (Acute) Insomnia (Chronic) Depression (Chronic) Osteoarthritis of knee (Acute) Pancreatitis (Chronic) GERD (gastroesophageal reflux disease) (Chronic) Hyperlipidemia (Acute) Hypertension (Chronic) Atrial fibrillation (Chronic) Medical History History of COVID-19 12/2020, received MAB Surgical History S/P hernia repair S/P knee surgery S/P TURP Social History Smoking/Tobacco Use Status: Former Tobacco Use Smoking risk assessment performed?: Yes Alcohol Intake: former Drug use: Never Substance use type: does not use Caregiver/Support person: Yes Household members: children Housing: house Number of Children: 4 Communication Needs: Language Barriers Do you need help understanding health information?: Often current occupation: retired Current gender identity: male What is your relationship status?: Panel score (0-1 are the most socially isolated patients): 0 What type of physical activity do you participate in: none Seatbelt use: always 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 It appears tooth #21 and 24 have been extracted. There is bleeding of the mucosa at the base where the tooth was extracted. There is a mild amount of oozing. There is no pulsatile bleeding or significant clots noted. Eyes General: appearance normal, both eyes and all related structures Neck Neck: normal visual inspection Resp Effort & Inspection: normal respiratory effort and able to speak in complete sentences Cardio Rate: regular rate Skin General skin exam: no rashes or lesions noted Neuro General: patient alert, patient awake and patient oriented x3 Motor: muscle tone normal throughout Extrem General: normal to inspection and full ROM Psych Appearance: grossly normal Affect: normal affect Course Vital Signs Vital signs: Vital Signs Temperature 97.6 F 02/03/23 03:37 Pulse 82 02/03/23 03:37 Respiratory Rate 18 02/03/23 03:37 Blood Pressure 152/74 H 02/03/23 03:37 Pulse Oximetry 96 02/03/23 03:37 Temperature 97.6 F 02/03/23 03:37 Pulse 82 02/03/23 03:37 Respiratory Rate 18 02/03/23 03:37 Respiratory Effort Normal 02/03/23 03:43 Blood Pressure 152/74 H 02/03/23 03:37 Blood Pressure Position Supine 02/03/23 03:37 Pulse Oximetry 96 02/03/23 03:37 Oxygen Delivery Method Room Air 02/03/23 03:37 Oxygen Flow Rate 0 02/03/23 03:37
--- NOTE | 2023-02-03 04:51 | NUR.NOTE ---
Nursing Note: TXA admisitered topically by Dr. Rasheed x 2
[2023-02-03 05:50] VITALS: BP 148/72; PULSE 82; RESP 18; O2SAT 95
== END 2023-02-03 06:03 | disposition home or self-care (01) ==
PROVIDERS: Emergency Provider Physician Assistant; PCP Family Medicine
DX: K06.8 Other specified disorders of gingiva and edentulous alveolar ridge (principal)
CPT/HCPCS: 99282